=== PATIENT | male | born 1945 | race Caucasian/White ===

== ENCOUNTER 2020-02-05 10:38 | Inpatient (IN) | payer MEDICARE, MEDICAID ==
[2020-02-05] MEDS ORDERED: NS 1,000 ML IV ONE (11:00)
[2020-02-05 11:13] LABS: BASO % 0.1 % (0.0-1.0); HEMATOCRIT 52.3 % (42.0-52.0); HEMOGLOBIN 16.8 g/dl (13.5-17.5); LYMPH # 0.9 10^3/uL (1.5-5.0); LYMPH % 3.8 % (24.0-44.0); MEAN CORPUSCULAR HEMOGLOBIN 31.2 pg (27.0-33.0); MEAN CORPUSCULAR HGB CONC 32.1 g/dl (32.0-36.5); MONO # 1.4 10^3/uL (0.0-0.8); MONO % 5.8 % (0.0-5.0); NEUTROPHILS # 20.7 10^3/uL (1.5-8.5); NEUTROPHILS % 89.5 % (36.0-66.0); PLATELET COUNT, AUTOMATED 183 10^3/uL (150-450); RED BLOOD COUNT 5.39 10^6/uL (4.30-6.10); WHITE BLOOD COUNT 23.2 10^3/uL (4.0-10.0)
[2020-02-05] MEDS ORDERED: ACETAMINOPHEN 650 MG SUPP PR ONE (11:30)
[2020-02-05] MEDS ORDERED: cefTRIAXone SOD 2 GM in D5W MINI-BAG PLUS 50 ML IV ONE (11:30)
[2020-02-05] MEDS ORDERED: NS 2,050 ML in IV 1 EA IV ONE (11:30)
[2020-02-05 11:43] LABS: OSMOLALITY SERUM 299 MOSM/KG (280-301)
[2020-02-05 11:46] LABS: RSV AMPLIFICATION NEGATIVE (NEGATIVE)
[2020-02-05 11:48] LABS: ACETAMINOPHEN LEVEL < 2.0 UG/ML (10.0-30.0); ALBUMIN 3.2 GM/DL (3.2-5.2); ALT/SGPT 19 U/L (12-78); BILIRUBIN,DIRECT 0.2 MG/DL (0.0-0.2); BILIRUBIN,TOTAL 1.3 MG/DL (0.2-1.0); BLOOD UREA NITROGEN 23 MG/DL (7-18); CALCIUM LEVEL 8.5 MG/DL (8.8-10.2); CARBON DIOXIDE LEVEL 26 MEQ/L (21-32); CHLORIDE LEVEL 109 MEQ/L (98-107); CK-MB VALUE MASS 1.1 NG/ML (<3.6); CPK CREATINE PHOSPHOKINASE 121 U/L (39-308); ETHYL ALCOHOL (ETHANOL) 0.005 % (0.000-0.010); GLUCOSE, FASTING 145 MG/DL (70-100); MB/CK RELATIVE INDEX 0.91 (< OR =4); POTASSIUM SERUM 4.4 MEQ/L (3.5-5.1); SALICYLATE LEVEL < 1.7 MG/DL (5.0-30.0); SODIUM LEVEL 144 MEQ/L (136-145); THYROID STIMULATING HORMONE 0.709 uIU/ML (0.358-3.740); TOTAL PROTEIN 6.8 GM/DL (6.4-8.2); TROPONIN I < 0.02 NG/ML (< 0.10)
[2020-02-05 11:55] LABS: AMPHETAMINES LEVEL URINE NEGATIVE (NEGATIVE); BARBITURATES URINE NEGATIVE (NEGATIVE); BENZODIAZEPINES URINE NEGATIVE (NEGATIVE); CANNABINOIDS URINE NEGATIVE (NEGATIVE); COCAINE METABOLITE URINE NEGATIVE (NEGATIVE); METHADONE URINE NEGATIVE (NEGATIVE); OPIATES URINE NEGATIVE (NEGATIVE); PHENCYCLIDINE URINE NEGATIVE (NEGATIVE)
[2020-02-05 11:56] LABS: VENOUS BASE EXCESS -1.1 (-2.0-2.0); VENOUS HCO3 22.4 MEQ/L (23.0-27.0); VENOUS O2 SATURATION 96.1 % (60.0-80.0); VENOUS PARTIAL PRESSURE CO2 34.9 mmHg (38.0-50.0); VENOUS PARTIAL PRESSURE O2 76.1 mmHg (30.0-50.0); VENOUS PH 7.426 UNITS (7.330-7.430); VENOUS STANDARD HCO3 23.5 MEQ/L; VENOUS TOTAL CO2 23.5 MEQ/L (24.0-28.0)
--- NOTE | 2020-02-05 12:30 | REP ---
INDICATION: weakness. COMPARISON: No comparison study. TECHNIQUE: Portable upright AP chest radiograph. FINDINGS: Patient is turned somewhat to the left. Monitoring electrodes are seen. There is linear fibrosis versus platelike atelectasis in the left base. Heart is mildly prominent. No other infiltrate is seen. Pleural angles are sharp.. IMPRESSION: Linear platelike atelectasis versus scarring left base. Mildly prominent heart. Otherwise no acute disease.. <Electronically signed by Rolando Soto > 02/05/20 [id number]
[2020-02-05] MEDS ORDERED: ISOVUE-370 76% 100ML VIAL As Ordered ONE ×2 (13:03→13:11)
--- NOTE | 2020-02-05 13:48 | REP ---
INDICATION: weakness/leukocytosis/fever. COMPARISON: None. TECHNIQUE: Chest CT with IV contrast FINDINGS: There is dependent atelectasis versus subsegmental infiltrates in the lung bases bilaterally. There small bilateral pleural effusions. There are heavy interstitial markings. This could represent congestion or interstitial infiltrates. No lung masses or nodules are identified. There is no mediastinal, hilar or axillary lymph node enlargement. The thoracic aorta is unremarkable. Cardiac size is enlarged. There is no pericardial effusion. The visualized upper abdominal structures are unremarkable. IMPRESSION: Heavy interstitial markings, vascular congestion versus interstitial infiltrates. Bibasilar infiltrates versus dependent atelectasis. Small bilateral pleural effusions. Cardiomegaly. <Electronically signed by Joseph Nguyen > 02/05/20 [id number]
--- NOTE | 2020-02-05 13:48 | REP ---
INDICATION: weakness. COMPARISON: None. TECHNIQUE: Helical scanning is acquired. 5 mm axial images were reformatted. Coronal MPR images were generated. FINDINGS: Bone window settings demonstrate an intact bony calvarium. There is no evidence of skull fracture or incidental bony calvarial lesion. The visualized paranasal sinuses appear clear. No intraorbital abnormality is seen. On soft tissue window setting images; the lateral, third, and fourth ventricles are normal in size and position. Elkins-white differentiation pattern is normal above and below the tentorium. There are is no evidence of intracranial hemorrhage. No mass, edema, infarction, or midline shift is seen. No extra-axial fluid collection is appreciated. There is mild generalized volume loss. Small-vessel changes are seen in the periventricular white matter of the frontal lobes bilaterally. IMPRESSION: Small vessel changes and mild generalized volume loss. No acute intracranial abnormality.. <Electronically signed by Rolando Soto > 02/05/20 [id number]
--- NOTE | 2020-02-05 13:59 | REP ---
INDICATION: weakness/leukocytosis/fever. COMPARISON: None. TECHNIQUE: Abdomen and pelvis CT with IV contrast, without bowel contrast. FINDINGS: Please refer to the chest CT for findings in the lower lung dawkins. The hepatic parenchyma is homogeneous. There is no cholelithiasis. The gallbladder is moderately distended. There is induration of the para cholecystic fat, along the inferior margin of the gallbladder, interposed between the gallbladder and colonic hepatic flexure. No colonic diverticula are identified in this area. There is no pneumoperitoneum. There is no ascites.. This is nonspecific but could represent acalculous cholecystitis in the appropriate clinical setting. The pancreas and spleen are unremarkable. The adrenals and kidneys are unremarkable except for tiny renal cortical cyst on the left. There is a Bosniak type 1 left renal lower pole 3.6 cm cyst. The abdominal aorta is unremarkable. There is no periaortic adenopathy or mass. 9 there is no bowel distention or obstruction. The mesentery is otherwise unremarkable. Pelvis: The appendix is unremarkable. The bladder is unremarkable. The pelvic bowel loops are unremarkable. There is no ascites or adenopathy. There is a total right hip arthroplasty resulting in beam hardening and obscuration of the inferior pelvis. There is grade 1 compression deformity of the L1 vertebral body superior endplate, chronic versus acute. There is degenerative disc disease at L5-S1. IMPRESSION: Induration of the mesenteric fat inferior to the gallbladder interposed between the gallbladder and hepatic flexure of the colon. There is no cholelithiasis. There is mild gallbladder wall thickening. These findings are nonspecific but could represent acalculous cholecystitis in the appropriate clinical setting. No a diverticular wall thickening of the colonic hepatic flexure are identified. There is no cholelithiasis or gallbladder wall thickening. Consider gallbladder ultrasound for further evaluation. The appendix is unremarkable. Bowel loops and mesentery are otherwise unremarkable. There is no ascites or adenopathy. Age indeterminate grade 1 compression deformity of the L1 superior endplate. Right hip arthroplasty. <Electronically signed by Joseph Nguyen > 02/05/20 [id number]
[2020-02-05] MEDS ORDERED: TRIH2TAB3 PO (15:15)
[2020-02-05] MEDS ORDERED: MIRT-62 PO (15:15)
[2020-02-05] MEDS ORDERED: MELA1TAB9 PO (15:15)
[2020-02-05] MEDS ORDERED: BUPR300T92 PO ×2 (15:15)
[2020-02-05] MEDS ORDERED: ELIQ5TAB PO (15:15)
[2020-02-05] MEDS ORDERED: ACET650T61 PO (15:16)
[2020-02-05 17:58] VITALS: BP 143/71
--- NOTE | 2020-02-05 18:26 | HPEPDOC ---
General Date of Admission Feb 05, 2020 at 15:45 Date of Service: Feb 05, 2020 Chief Complaint The patient is a 75-year-old male admitted with a reason for visit of Pneumonia. Source: Family History of Present Illness Mr. Montgomery is a 75 year old male with Multisystem Atrophy for 10 years who is here for lethargy and AMS. History was obtained from sister (Sven Cook [phone] who is HCP and POA, not to be confused with [id number] Margie Bañuelos was originally at [facility] in [place], [place] until two weeks ago when family removed him from [facility]. Due to the COVID pandemic, family has not been able to see him, so they took him out of the nursing facility to live with them. At baseline, he is wheelchair bound. He is cognitively there and is able to eat regular food and drink through the straw. He cannot use utensils well and needs help to eat. About a week ago, he stopped having bowel movements, and family has been giving him MiraLax daily. He has been passing gas. Yesterday, he became very lethargic and he was more difficult to understand. EMS was contacted. CT head was negative. CT chest was suggestive of pneumonia and demonstrated possible UTI. Sister reports frequent UTI in patient. When I evaluated patient, he was shivering and confused. He could follow commands, but did not appropriately answer questions. He received R ocephin and 2L of fluid in the ED. Home Medications Scheduled Acetaminophen (Tylenol Arthritis) 650 Mg Tablet.er, 650 MG PO BID, (Reported) Apixaban (Eliquis) 5 Mg Tablet, 5 MG PO BID, (Reported) Bupropion HCl (Bupropion Xl) 300 Mg Tab.er.24h, 300 MG PO DAILY, (Reported) Melatonin (Melatonin) 5 Mg Tablet, 10 MG PO QHS, (Reported) Mirtazapine (Remeron) 15 Mg Tablet, 15 MG PO QHS, (Reported) Trihexyphenidyl HCl (Trihexyphenidyl HCl) 2 Mg Tablet, 2 MG PO QHS, (Reported) Allergies Coded Allergies: No Known Allergies (Verified Allergy, Unknown, 02/05/20) Past Medical History Medical History 1. Multisystem Atrophy 2. Recent right leg DVT in February 2019 Surgical History 1. Appendectomy 2. Hip replacement (unknown side) 3. Colonoscopy with complications (unknown complications) Family History Father: DM Mother: unknown Social History * Smoker: non-smoker Alcohol: Denies Drugs: denies A-FIB/CHADSVASC A-FIB History Current/History of A-Fib/PAF?: No Review of Systems Other systems Due to AMS and confusion, he was able to answer ROS questions Physical Examination General Exam: Positive: Moderate Distress Eye Exam: Positive: EOMI; Negative: Sclera icteric ENT Exam: Positive: Atraumatic Neck Exam: Negative: thyromegaly Chest Exam: Positive: Diminished Heart Exam: Positive: Rate Normal, Regular Rhythm Abdomen Exam: Positive: Normal bowel sounds; Negative: Soft (Hard), Tenderness Extremity Exam: Positive: Edema (Mild bilateral pitting edema) Neuro Exam: Negative: Normal Speech Psych Exam: Positive: Anxiety; Negative: Mental status NL Vital Signs Vital Signs Date Time Temp Pulse Resp B/P (MAP) Pulse Ox O2 Delivery O2 Flow Rate FiO2 02/05/20 16:26 98.8 87 18 92 Room Air 02/05/20 16:15 147/76 (99) Laboratory Data Labs 24H Laboratory Tests 2 02/05/20 10:58: Urine Color DK YELLOW, Urine Appearance HAZY, Urine pH 5.0, Urine Specific G ravity 1.024, Urine Protein 1+H, Urine Glucose (UA) NEGATIVE, Urine Ketones NEGATIVE, Urine Blood 1+H, Urine Nitrite NEGATIVE, Urine Bilirubin NEGATIVE, Urine Urobilinogen 4.0H, Urine Leukocyte Esterase 1+H, Urine WBC (Auto) 29H, Urine RBC (Auto) 15H, Urine Hyaline Casts (Auto) 0, Urine Bacteria (Auto) 1+H, Urine Squamous Epithelial Cells 0, Urine Mucus (Auto) SMALL, Urine Sperm (Auto) , Urine Opiates Screen NEGATIVE, Urine Methadone Screen NEGATIVE, Urine Barbiturates Screen NEGATIVE, Urine Phencyclidine Screen NEGATIVE, Urine Amphetamines Screen NEGATIVE, Urine Benzodiazepines Screen NEGATIVE, Urine Cocaine Metabolite Screen NEGATIVE, Urine Cannabinoids Screen NEGATIVE 02/05/20 11:00: Immature Granulocyte % (Auto) 0.8, Neutrophils (%) (Auto) 89.5H, Lymphocytes (%) (Auto) 3.8L, Monocytes (%) (Auto) 5.8H, Eosinophils (%) (Auto) 0.0, Basophils (%) (Auto) 0.1, Neutrophils # (Auto) 20.7H, Lymphocytes # (Auto) 0.9L, Monocytes # (Auto) 1.4H, Eosinophils # (Auto) 0.0, Basophils # (Auto) 0.0, Nucleated Red Blood Cells % (auto) 0.0, Anion Gap 9, Glomerular Filtration Rate 57.0, Osmolality 299, Lactic Acid Level 2.7*H, Calcium Level 8.5L, Total Bilirubin 1.3H, Direct Bilirubin 0.2, Aspartate Amino Transf (AST/SGOT) 22, Alanine Aminotransferase (ALT/SGPT) 19, Alkaline Phosphatase 85, Ammonia < 10, Total Creatine Kinase 121, Creatine Kinase MB 1.1, Creatine Kinase MB Relative Index 0.91, Troponin I < 0.02, Total Protein 6.8, Albumin 3.2, Albumin/Globulin Ratio 0.9, Thyroid Stimulating Hormone (TSH) 0.709, Salicylates Level < 1.7L, Acetaminophen Level < 2.0L, Ethyl Alcohol Level 0.005, Coronavirus (COVID- 19)(PCR) NEGATIVE, Influenza Type A (RT-PCR) NEGATIVE, Influenza Type B (RT-PCR) NEGATIVE, Respiratory Syncytial Virus (PCR) NEGATIVE 02/05/20 11:21: Blood Gas Bicarbonate Standard 23.5, Venous Blood pH 7.426, Venous Blood Partial Pressure CO2 34.9L, Venous Blood Partial Pressure O2 76.1H, Venous Blood Total Carbon Dioxide 23.5L, Venous Blood HCO3 22.4L, Venous Blood Oxygen Saturation 96.1H, Venous Blood Base Excess -1.1 02/05/20 16:16: Lactic Acid Followup at 4 Hours 3.3*H CBC/BMP Laboratory Tests 02/05/20 11:00 Microbiology Microbiology 02/05/20 Blood Culture, Received Pending 02/05/20 Blood Culture, Received Pending 02/05/20 Urine Culture, Received Pending Assessment/Plan Mr. Montgomery is a 75 year old male with Multisystem Atrophy for 10 years who is here for lethargy and AMS and found to have metabolic encephalopathy secondary to PNA and UTI. He will be treated for CAP. Same coverage with Rocephin for UTI. Pending urine culture results. Otherwise, continue monitoring for fever resolution and leukocytosis Plan / VTE VTE Prophylaxis Ordered?: Yes Plan Plan 1. Metabolic encephalopathy secondary to infection -Rocephin and azithromycin for CAP -Rocephin for UTI -Supportive care -Goal to have resolution of fever for more than 24 to 48 hours and resolution of leukocytosis -Follow up on procalcitonin and inflammatory markers 2. CAP -Imaging suggestive of PNA -Leukocytosis and fever -Rocephin and azithromycin -Ordered Sputum culture, Urine legionella antigen, urine strep pneumo antigen 3. UTI -UA suggestive for UTI -Pending culture results -Rocephin 4. Multisystem Atrophy -Follow up with neurology on Feb 25 -Continue Trihexyphen and Mirtazapine 5. History of DVT in Feb 2019 -Continue Eliquis 6. DVT ppx -On Eliquis Disposition: Family hopes to bring patient home at the end of the hospitalization FRED RBAVO DO Feb 05, 2020 17:49
[2020-02-05] MEDS: AZITHROMYCIN INJ 500 MG, VIAL MATE ADAPTER 1 EACH in D5W 250 ML IV SCH (18:30)
[2020-02-05] MEDS: TRIHEXYPHENIDYL 2 MG TAB PO SCH (21:03)
[2020-02-05] MEDS: APIXABAN 5 MG TAB (ELIQUIS) PO SCH (21:03)
[2020-02-05] MEDS: MIRTAZAPINE 15 MG TAB PO SCH (21:03)
[2020-02-05 22:00] VITALS: BP 140/72
[2020-02-05] MEDS ORDERED: NYSTATIN 100,000 UNITS/GM TOPICAL PWD 15 GM TOP PRN (22:45)
[2020-02-06 06:00] VITALS: BP 140/74
[2020-02-06 06:07] LABS: HEMATOCRIT 48.5 % (42.0-52.0); HEMOGLOBIN 15.3 g/dl (13.5-17.5); MEAN CORPUSCULAR HEMOGLOBIN 30.8 pg (27.0-33.0); MEAN CORPUSCULAR HGB CONC 31.5 g/dl (32.0-36.5); MEAN CORPUSCULAR VOLUME 97.6 fl (80.0-96.0); PLATELET COUNT, AUTOMATED 147 10^3/uL (150-450); RED BLOOD COUNT 4.97 10^6/uL (4.30-6.10); WHITE BLOOD COUNT 21.1 10^3/uL (4.0-10.0)
[2020-02-06 06:23] LABS: BLOOD UREA NITROGEN 22 MG/DL (7-18); CALCIUM LEVEL 9.1 MG/DL (8.8-10.2); CARBON DIOXIDE LEVEL 25 MEQ/L (21-32); CHLORIDE LEVEL 109 MEQ/L (98-107); CREATININE FOR GFR 1.11 MG/DL (0.70-1.30); GLOMERULAR FILTRATION RATE > 60.0 (>42); GLUCOSE, FASTING 132 MG/DL (70-100); POTASSIUM SERUM 3.5 MEQ/L (3.5-5.1); SODIUM LEVEL 139 MEQ/L (136-145)
--- NOTE | 2020-02-06 07:01 | ECGEPIP ---
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
[2020-02-06 07:49] LABS: ALBUMIN 2.8 GM/DL (3.2-5.2); ALT/SGPT 19 U/L (12-78); BILIRUBIN,DIRECT 0.4 MG/DL (0.0-0.2); BILIRUBIN,TOTAL 1.1 MG/DL (0.2-1.0); TOTAL PROTEIN 6.7 GM/DL (6.4-8.2)
[2020-02-06] MEDS: APIXABAN 5 MG TAB (ELIQUIS) PO SCH ×2 (10:03→21:09)
[2020-02-06] MEDS: BACLOFEN 10 MG TAB PO SCH ×3 (10:03→21:09)
[2020-02-06] MEDS: buPROPion **XL** TABLET 150MG (WELLBUTRIN XL) PO SCH (10:05)
[2020-02-06] MEDS: GABAPENTIN 100 MG CAP PO SCH ×2 (10:05→21:09)
[2020-02-06] MEDS: cefTRIAXone SOD 1 GM in D5W MINI-BAG PLUS 50 ML IV SCH (12:10)
[2020-02-06 14:00] VITALS: BP 134/74
[2020-02-06] MEDS: AZITHROMYCIN INJ 500 MG, VIAL MATE ADAPTER 1 EACH in D5W 250 ML IV SCH (17:00)
[2020-02-06] MEDS: ACETAMINOPHEN TAB 650MG DOSE (2X325MG) PO PRN (19:30)
--- NOTE | 2020-02-06 21:00 | IPNPDOC ---
Subjective Date Seen The patient was seen on 02/06/20. Subjective Chief Complaint/HPI Mr. Montgomery is a 75 year old male with Multisystem Atrophy for 10 years who is here for lethargy and AMS and found to have sepsis secondary to pneumonia and UTI. This morning, he was more conversive. He tells me he has dysuria. Denies chest pain or dyspnea. Reports thirst Objective Physical Examination General Exam: Positive: Mild Distress Eye Exam: Positive: EOMI; Negative: Sclera icteric ENT Exam: Positive: Atraumatic Neck Exam: Negative: thyromegaly Chest Exam: Positive: Diminished Heart Exam: Positive: Rate Normal, Regular Rhythm Abdomen Exam: Positive: Normal bowel sounds; Negative: Soft (Hard), Tenderness Extremity Exam: Positive: Edema (Mild bilateral pitting edema) Neuro Exam: Negative: Normal Speech Psych Exam: Positive: Anxiety; Negative: Mental status NL Assessment /Plan Assessment Mr. Montgomery is a 75 year old male with Multisystem Atrophy for 10 years who is here for lethargy and AMS and found to have sepsis secondary to PNA and UTI. He will be treated for CAP. Same coverage with Rocephin for UTI. Pending urine culture results. Otherwise, continue monitoring for fever resolution and leukocytosis Plan/VTE VTE Prophylaxis Ordered?: Yes Plan 1. Metabolic encephalopathy secondary to Sepsis -Rocephin and azithromycin for CAP -Rocephin for UTI -Supportive care -Goal to have resolution of fever for more than 24 to 48 hours and resolution of leukocytosis -Follow up on procalcitonin and inflammatory markers 2. Sepsis in the setting of pneumonia and UTI -Leukocytosis of 23.2, Fever of 101.7, HR >90 and RR >20 -lactic acid of 3.3 -Blood cultures positive for gram negative organism -Received 30mL/kg of fluids on admission, continue with antibiotics 3. CAP -Imaging suggestive of PNA -Leukocytosis and fever -Rocephin and azithromycin -Ordered Sputum culture, Urine legionella antigen, urine strep pneumo antigen 4. UTI -UA suggestive for UTI -Pending culture results -Rocephin 5. Multisystem Atrophy -Follow up with neurology on Feb 25 -Continue Trihexyphen and Mirtazapine 6. History of DVT in Feb 2019 -Continue Eliquis 7. DVT ppx -On Eliquis Disposition: Family hopes to bring patient home at the end of the hospitalization VS, I&O, 24H, Arie Vital Signs/I&O Vital Signs Date Time Temp Pulse Resp B/P (MAP) Pulse Ox O2 Delivery O2 Flow Rate FiO2 02/06/20 19:31 100.2 02/06/20 14:00 77 16 134/74 (94) 93 Room Air I&O- Last 24 Hours up to 6 AM 02/06/20 06:00 Intake Total 2680 ml Output Total 0 ml Balance 2680 ml Laboratory Data 24H LABS Laboratory Tests 2 02/06/20 05:21: Nucleated Red Blood Cells % (auto) 0.0, Anion Gap 5L, Glomerular Filtration Rate > 60.0, Calcium Level 9.1, Total Bilirubin 1.1H, Direct Bilirubin 0.4H, Aspartate Amino Transf (AST/SGOT) 13, Alanine Aminotransferase (ALT/SGPT) 19, Alkaline Phosphatase 78, Total Protein 6.7, Albumin 2.8L, Albumin/Globulin Ratio 0.7 02/06/20 07:36: Lactic Acid Level 1.6 CBC/BMP Laboratory Tests 02/06/20 05:21 Microbiology Microbiology 02/05/20 Blood Culture - Preliminary, Resulted 02/05/20 Blood Culture - Preliminary, Resulted 02/05/20 Urine Culture, Received Pending FRED BRAVO DO Feb 06, 2020 21:00
[2020-02-06] MEDS: TRIHEXYPHENIDYL 2 MG TAB PO SCH (21:09)
[2020-02-06] MEDS: MIRTAZAPINE 15 MG TAB PO SCH (21:09)
[2020-02-06 22:00] VITALS: BP 139/75
[2020-02-07 06:00] VITALS: BP 142/64
[2020-02-07 06:39] LABS: HEMATOCRIT 47.4 % (42.0-52.0); HEMOGLOBIN 15.4 g/dl (13.5-17.5); MEAN CORPUSCULAR HEMOGLOBIN 32.4 pg (27.0-33.0); MEAN CORPUSCULAR HGB CONC 32.5 g/dl (32.0-36.5); MEAN CORPUSCULAR VOLUME 99.6 fl (80.0-96.0); PLATELET COUNT, AUTOMATED 122 10^3/uL (150-450); RED BLOOD COUNT 4.76 10^6/uL (4.30-6.10); WHITE BLOOD COUNT 15.8 10^3/uL (4.0-10.0)
[2020-02-07 07:04] LABS: BLOOD UREA NITROGEN 24 MG/DL (7-18); CALCIUM LEVEL 7.9 MG/DL (8.8-10.2); CARBON DIOXIDE LEVEL 25 MEQ/L (21-32); CHLORIDE LEVEL 108 MEQ/L (98-107); CREATININE FOR GFR 1.07 MG/DL (0.70-1.30); GLOMERULAR FILTRATION RATE > 60.0 (>42); GLUCOSE, FASTING 98 MG/DL (70-100); POTASSIUM SERUM 3.7 MEQ/L (3.5-5.1); SODIUM LEVEL 141 MEQ/L (136-145)
[2020-02-07] MEDS ORDERED: PREVNAR 13 VACCINE SYRINGE IM ONE (09:00)
[2020-02-07] MEDS: APIXABAN 5 MG TAB (ELIQUIS) PO SCH ×2 (11:34→20:52)
[2020-02-07] MEDS: GABAPENTIN 100 MG CAP PO SCH ×2 (11:34→20:53)
[2020-02-07] MEDS: BACLOFEN 10 MG TAB PO SCH ×3 (11:34→20:53)
[2020-02-07] MEDS: cefTRIAXone SOD 1 GM in D5W MINI-BAG PLUS 50 ML IV SCH (11:35)
[2020-02-07] MEDS: buPROPion **XL** TABLET 150MG (WELLBUTRIN XL) PO SCH (11:46)
[2020-02-07 14:00] VITALS: BP 122/70
[2020-02-07] MEDS: AZITHROMYCIN INJ 500 MG, VIAL MATE ADAPTER 1 EACH in D5W 250 ML IV SCH (17:39)
[2020-02-07] MEDS: ACETAMINOPHEN TAB 650MG DOSE (2X325MG) PO PRN (18:51)
--- NOTE | 2020-02-07 18:56 | IPNPDOC ---
Subjective Date Seen The patient was seen on 02/07/20. Subjective Chief Complaint/HPI Mr. Montgomery is a 75 year old male with Multisystem Atrophy for 10 years who is here for lethargy and AMS and found to have sepsis secondary to pneumonia and UTI. Yesterday afternoon, had had a fever and this morning, he had a low grade temp. Otherwise, his voice is stronger and clearer. Denies chest pain or abdominal pain. Objective Physical Examination General Exam: Positive: Mild Distress Eye Exam: Positive: EOMI; Negative: Sclera icteric ENT Exam: Positive: Atraumatic Neck Exam: Negative: thyromegaly Chest Exam: Positive: Diminished Heart Exam: Positive: Rate Normal, Regular Rhythm Abdomen Exam: Positive: Normal bowel sounds; Negative: Soft (Hard), Tenderness Extremity Exam: Positive: Edema (Mild bilateral pitting edema) Neuro Exam: Negative: Normal Speech Psych Exam: Positive: Anxiety; Negative: Mental status NL Assessment /Plan Assessment Mr. Montgomery is a 75 year old male with Multisystem Atrophy for 10 years who is here for lethargy and AMS and found to have sepsis secondary to PNA and UTI. He will be treated for CAP. Same coverage with Rocephin for UTI. Pending urine culture grew Proteus mirabilis (>100,000). Otherwise, continue monitoring for fever resolution and leukocytosis. Pending blood cultures which grew gram negative organisms. Most likely the same organism Plan/VTE VTE Prophylaxis Ordered?: Yes Plan 1. Metabolic encephalopathy secondary to Sepsis -Rocephin and azithromycin for CAP -Rocephin for UTI -Supportive care -Goal to have resolution of fever for more than 24 to 48 hours and resolution of leukocytosis -Follow up on procalcitonin and inflammatory markers 2. Gram negative sepsis in the setting of pneumonia and UTI -Leukocytosis of 23.2, Fever of 101.7, HR >90 and RR >20 -lactic acid of 3.3 -Blood cultures positive for gram negative organism. Pending result -Received 30mL/kg of fluids on admission, continue with antibiotics 3. CAP -Imaging suggestive of PNA -Leukocytosis and fever -Rocephin and azithromycin -Ordered Sputum culture, Urine legionella antigen, urine strep pneumo antigen 4. Proteus mirabilis UTI -Reported dysuria -Urine culture grew Proteus mirabilis -Rocephin 5. Multisystem Atrophy -Follow up with neurology on Feb 25 -Continue Trihexyphen and Mirtazapine 6. History of DVT in Feb 2019 -Continue Eliquis 7. DVT ppx -On Eliquis Disposition: Family hopes to bring patient home at the end of the hospitalization VS, I&O, 24H, Fishbone Vital Signs/I&O Vital Signs Date Time Temp Pulse Resp B/P (MAP) Pulse Ox O2 Delivery O2 Flow Rate FiO2 02/07/20 14:00 100.2 75 18 122/70 (87) 93 Room Air I&O- Last 24 Hours up to 6 AM 02/07/20 06:00 Intake Total 600 ml Output Total 0 ml Balance 600 ml Laboratory Data 24H LABS Laboratory Tests 2 02/07/20 06:04: Nucleated Red Blood Cells % (auto) 0.0, Anion Gap 8, Glomerular Filtration Rate > 60.0, Calcium Level 7.9L 02/07/20 11:39: Bedside Glucose (Misc Panel) 109 02/07/20 17:14: Bedside Glucose (Misc Panel) 107 CBC/BMP Laboratory Tests 02/07/20 06:04 Microbiology Microbiology 02/05/20 Blood Culture - Preliminary, Resulted 02/05/20 Blood Culture - Preliminary, Resulted 02/05/20 Urine Culture - Final, Complete Proteus Mirabilis FRED BRAVO DO Feb 07, 2020 18:56
[2020-02-07] MEDS: TRIHEXYPHENIDYL 2 MG TAB PO SCH (20:53)
[2020-02-07] MEDS: MIRTAZAPINE 15 MG TAB PO SCH (20:53)
[2020-02-07 22:00] VITALS: BP 123/72
[2020-02-08 06:00] VITALS: BP 126/72
[2020-02-08 06:16] LABS: HEMATOCRIT 44.6 % (42.0-52.0); HEMOGLOBIN 14.2 g/dl (13.5-17.5); MEAN CORPUSCULAR HGB CONC 31.8 g/dl (32.0-36.5); MEAN CORPUSCULAR VOLUME 97.4 fl (80.0-96.0); PLATELET COUNT, AUTOMATED 143 10^3/uL (150-450); RED BLOOD COUNT 4.58 10^6/uL (4.30-6.10); WHITE BLOOD COUNT 12.5 10^3/uL (4.0-10.0)
[2020-02-08 06:39] LABS: BLOOD UREA NITROGEN 22 MG/DL (7-18); CALCIUM LEVEL 8.1 MG/DL (8.8-10.2); CARBON DIOXIDE LEVEL 24 MEQ/L (21-32); CHLORIDE LEVEL 107 MEQ/L (98-107); CREATININE FOR GFR 0.91 MG/DL (0.70-1.30); GLOMERULAR FILTRATION RATE > 60.0 (>42); GLUCOSE, FASTING 113 MG/DL (70-100); POTASSIUM SERUM 3.7 MEQ/L (3.5-5.1); SODIUM LEVEL 141 MEQ/L (136-145)
[2020-02-08] MEDS: cefTRIAXone SOD 1 GM in D5W MINI-BAG PLUS 50 ML IV SCH (11:10)
[2020-02-08] MEDS: APIXABAN 5 MG TAB (ELIQUIS) PO SCH ×2 (12:04→22:56)
[2020-02-08] MEDS: GABAPENTIN 100 MG CAP PO SCH ×2 (12:04→22:56)
[2020-02-08] MEDS: buPROPion **XL** TABLET 150MG (WELLBUTRIN XL) PO SCH (12:04)
[2020-02-08] MEDS: BACLOFEN 10 MG TAB PO SCH ×3 (12:04→22:56)
[2020-02-08 14:00] VITALS: BP 129/73
--- NOTE | 2020-02-08 14:19 | IPNPDOC ---
Subjective Date Seen The patient was seen on 02/08/20. Subjective Chief Complaint/HPI Mr. Montgomery is a 75 year old male with Multisystem Atrophy for 10 years who is here for lethargy and AMS and found to have sepsis secondary to pneumonia and UTI. He has cyclical low grade temps which may be a beta-lactam fever. Leukocytosis improving and there is an overall clinical improvement. Will switch from Ceftriaxone to Levofloxacin. Otherwise, he was seen in the afternoon eating lunch with assistance. Denies chest pain, dyspnea, abdominal pain, or dysuria. Objective Physical Examination General Exam: Positive: No Acute Distress Eye Exam: Positive: EOMI; Negative: Sclera icteric ENT Exam: Positive: Atraumatic Neck Exam: Negative: thyromegaly Chest Exam: Positive: Diminished Heart Exam: Positive: Rate Normal, Regular Rhythm Abdomen Exam: Positive: Normal bowel sounds; Negative: Tenderness Extremity Exam: Positive: Edema (Mild bilateral pitting edema) Neuro Exam: Positive: Normal Speech Psych Exam: Positive: Mental status NL, Mood NL Assessment /Plan Assessment Mr. Montgomery is a 75 year old male with Multisystem Atrophy for 10 years who is here for lethargy and AMS and found to have sepsis secondary to PNA and UTI. Both urine culture and blood culture grew Proteus mirabilis which is sensitive to both Rocephin and levofloxacin. His low grade temps may be a beta lactam fever. Will switch to levofloxacin for tomorrow. If his leukocytosis resolves, he may be able to go home tomorrow. Plan/VTE VTE Prophylaxis Ordered?: Yes Plan 1. Metabolic encephalopathy secondary to Sepsis -Rocephin and azithromycin for CAP -Rocephin for UTI -Supportive care -Goal to have resolution of leukocytosis 2. Gram negative sepsis (with Proteus) in the setting of pneumonia and UTI -Leukocytosis of 23.2, Fever of 101.7, HR >90 and RR >20 -lactic acid of 3.3 -Blood cultures positive for gram negative organism. Pending result -Received 30mL/kg of fluids on admission, continue with antibiotics 3. CAP -Imaging suggestive of PNA -Leukocytosis and fever -Completed azithromycin course -Switch Rocephin to levofloxacin 4. Proteus mirabilis UTI -Reported dysuria -Urine culture grew Proteus mirabilis -Levofloxacin for possible beta lactam fever with Rocephin 5. Multisystem Atrophy -Follow up with neurology on Feb 25 -Continue Trihexyphen and Mirtazapine 6. History of DVT in Feb 2019 -Continue Eliquis 7. DVT ppx -On Eliquis Disposition: Family hopes to bring patient home at the end of the hospit alization. Possibly tomorrow if leukocytes resolve VS, I&O, 24H, Fishbone Vital Signs/I&O Vital Signs Date Time Temp Pulse Resp B/P (MAP) Pulse Ox O2 Delivery O2 Flow Rate FiO2 02/08/20 06:00 97.5 74 18 126/72 (90) 95 Room Air I&O- Last 24 Hours up to 6 AM 02/08/20 06:00 Intake Total 675 ml Output Total 0 ml Balance 675 ml Laboratory Data 24H LABS Laboratory Tests 2 02/07/20 17:14: Bedside Glucose (Misc Panel) 107 02/08/20 05:47: Nucleated Red Blood Cells % (auto) 0.0, Anion Gap 10, Glomerular Filtration Rate > 60.0, Calcium Level 8.1L CBC/BMP Laboratory Tests 02/08/20 05:47 Microbiology Microbiology 02/08/20 Blood Culture, Received Pending 02/05/20 Blood Culture - Final, Complete Proteus Mirabilis 02/05/20 Blood Culture - Final, Complete Proteus Mirabilis 02/05/20 Urine Culture - Final, Complete Proteus Mirabilis FRED BRAVO DO Feb 08, 2020 14:19
[2020-02-08] MEDS: LevoFLOXacin 750 MG TABLET PO SCH (18:02)
[2020-02-08 22:00] VITALS: BP 155/97
[2020-02-08] MEDS: TRIHEXYPHENIDYL 2 MG TAB PO SCH (22:55)
[2020-02-08] MEDS: MIRTAZAPINE 15 MG TAB PO SCH (22:56)
[2020-02-09 06:00] VITALS: BP 133/67
[2020-02-09 06:29] LABS: HEMATOCRIT 42.1 % (42.0-52.0); HEMOGLOBIN 13.7 g/dl (13.5-17.5); MEAN CORPUSCULAR HEMOGLOBIN 32.1 pg (27.0-33.0); MEAN CORPUSCULAR HGB CONC 32.5 g/dl (32.0-36.5); MEAN CORPUSCULAR VOLUME 98.6 fl (80.0-96.0); PLATELET COUNT, AUTOMATED 149 10^3/uL (150-450); RED BLOOD COUNT 4.27 10^6/uL (4.30-6.10); WHITE BLOOD COUNT 8.4 10^3/uL (4.0-10.0)
[2020-02-09 06:50] LABS: BLOOD UREA NITROGEN 22 MG/DL (7-18); CALCIUM LEVEL 8.3 MG/DL (8.8-10.2); CARBON DIOXIDE LEVEL 27 MEQ/L (21-32); CHLORIDE LEVEL 108 MEQ/L (98-107); CREATININE FOR GFR 0.94 MG/DL (0.70-1.30); GLOMERULAR FILTRATION RATE > 60.0 (>42); GLUCOSE, FASTING 88 MG/DL (70-100); POTASSIUM SERUM 3.3 MEQ/L (3.5-5.1); SODIUM LEVEL 141 MEQ/L (136-145)
[2020-02-09] MEDS ORDERED: NS 1,000 ML IV SCH (08:30)
[2020-02-09] MEDS ORDERED: ISOVUE-370 76% 100ML VIAL As Ordered ONE (08:41)
[2020-02-09] MEDS ORDERED: POTASSIUM CHLORIDE 10% LIQ 20 MEQ/15 ML UDC PO ONE (09:00)
--- NOTE | 2020-02-09 09:24 | REPVR ---
PROCEDURE INFORMATION: Exam: CT Neck With Contrast Exam date and time: 02/09/2020 9:06 AM Age: 75 years old Clinical indication: Other: Right neck/clavical swelling; Patient HX: Bb marker placed above and below area of interest TECHNIQUE: Imaging protocol: Computed tomography images of the neck with intravenous contrast. Radiation optimization: All CT scans at this facility use at least one of these dose optimization techniques: automated exposure control; mA and/or kV adjustment per patient size (includes targeted exams where dose is matched to clinical indication); or iterative reconstruction. Contrast material: ISOVUE 370; Contrast volume: 75 ml; Contrast route: INTRAVENOUS (IV); COMPARISON: No relevant prior studies available. FINDINGS: Nasopharynx: Unremarkable. Oropharynx: Unremarkable. No significant tonsillar enlargement. Hypopharynx: Unremarkable. Larynx: Unremarkable. Normal epiglottis. Retropharyngeal space: Unremarkable. Submandibular/Parotid glands: Normal. Glands are normal in size. Thyroid: Normal. No enlarged or calcified nodules. Lymph nodes: Unremarkable. No lymphadenopathy. Trachea: Visualized trachea is unremarkable. Lungs: Unremarkable as visualized. Bones/joints: There is degenerative disc disease and spondylosis at multiple levels.. No acute fracture. Soft tissues: Unremarkable. No significant soft tissue swelling. IMPRESSION: No acute findings. Specifically, no overt soft tissue abnormality correlates with site of palpable abnormality Electronically signed by: Rachel Augustine On 02/09/2020 09:24:20 AM
[2020-02-09] MEDS: buPROPion **XL** TABLET 150MG (WELLBUTRIN XL) PO SCH (09:29)
[2020-02-09] MEDS: BACLOFEN 10 MG TAB PO SCH ×3 (09:29→20:00)
[2020-02-09] MEDS: GABAPENTIN 100 MG CAP PO SCH ×2 (09:29→20:01)
[2020-02-09] MEDS: APIXABAN 5 MG TAB (ELIQUIS) PO SCH ×2 (09:29→20:00)
[2020-02-09] MEDS ORDERED: LEVO750T13 PO (09:49)
[2020-02-09 14:00] VITALS: BP 144/77
--- NOTE | 2020-02-09 17:01 | IPNPDOC ---
Subjective Date Seen The patient was seen on 02/09/20. Subjective Chief Complaint/HPI Mr. Montgomery is a 75 year old male with Multisystem Atrophy for 10 years who is here for lethargy and AMS and found to have sepsis secondary to pneumonia and UTI. This morning, he was feeling better and was feeding himself. Denies chest pain, dyspnea, abdominal pain, or dysuria. Planned for discharge home today, but needed another day for to prepare to receive him at home. Objective Physical Examination General Exam: Positive: No Acute Distress Eye Exam: Positive: EOMI; Negative: Sclera icteric ENT Exam: Positive: Atraumatic Neck Exam: Negative: thyromegaly Chest Exam: Positive: Diminished Heart Exam: Positive: Rate Normal, Regular Rhythm Abdomen Exam: Positive: Normal bowel sounds; Negative: Tenderness Extremity Exam: Positive: Edema (Mild bilateral pitting edema) Neuro Exam: Positive: Normal Speech Psych Exam: Positive: Mental status NL, Mood NL Assessment /Plan Assessment Mr. Montgomery is a 75 year old male with Multisystem Atrophy for 10 years who is here for lethargy and AMS and found to have sepsis secondary to PNA and UTI. Both urine culture and blood culture grew Proteus mirabilis which is sensitive to both Rocephin and levofloxacin. His low grade temps may be a beta lactam fever. He was switched to Levofloxacin. Plan for home tomorrow Plan/VTE VTE Prophylaxis Ordered?: Yes Plan 1. Metabolic encephalopathy secondary to Sepsis -Rocephin and azithromycin for CAP -Rocephin for UTI -Supportive care -Goal to have resolution of leukocytosis 2. Gram negative sepsis (with Proteus) in the setting of pneumonia and UTI -Leukocytosis of 23.2, Fever of 101.7, HR >90 and RR >20 -lactic acid of 3.3 -Blood cultures positive for gram negative organism. Pending result -Received 30mL/kg of fluids on admission, continue with antibiotics 3. CAP -Imaging suggestive of PNA -Leukocytosis and fever -Completed azithromycin course -Switch Rocephin to levofloxacin 4. Proteus mirabilis UTI -Reported dysuria -Urine culture grew Proteus mirabilis -Levofloxacin for possible beta lactam fever with Rocephin 5. Multisystem Atrophy -Follow up with neurology on Feb 25 -Continue Trihexyphen and Mirtazapine 6. History of DVT in Feb 2019 -Continue Eliquis 7. DVT ppx -On Eliquis Disposition: Family hopes to bring patient home at the end of the hospitalization. Plan for home tomorrow VS, I&O, 24H, Fishbone Vital Signs/I&O Vital Signs Date Time Temp Pulse Resp B/P (MAP) Pulse Ox O2 Delivery O2 Flow Rate FiO2 02/09/20 14:00 99.1 58 18 144/77 (99) 95 Room Air I&O- Last 24 Hours up to 6 AM 02/09/20 05:59 Intake Total 1260 ml Output Total 0 ml Balance 1260 ml Laboratory Data 24H LABS Laboratory Tests 2 02/09/20 06:09: Nucleated Red Blood Cells % (auto) 0.0, Anion Gap 6L, Glomerular Filtration Rate > 60.0, Calcium Level 8.3L CBC/BMP Laboratory Tests 02/09/20 06:09 Microbiology Microbiology 02/08/20 Blood Culture - Preliminary, Resulted No growth after 24 hours . All specim... 02/05/20 Blood Culture - Final, Complete Proteus Mirabilis 02/05/20 Blood Culture - Final, Complete Proteus Mirabilis 02/05/20 Urine Culture - Final, Complete Proteus Mirabilis FRED BRAVO DO Feb 09, 2020 17:01
[2020-02-09] MEDS: LevoFLOXacin 750 MG TABLET PO SCH (17:09)
[2020-02-09] MEDS: MIRTAZAPINE 15 MG TAB PO SCH (20:00)
[2020-02-09] MEDS: TRIHEXYPHENIDYL 2 MG TAB PO SCH (20:31)
[2020-02-09 22:00] VITALS: BP_SYST 125; BP_SYST 145; BP_DIAS 71; BP_DIAS 76
[2020-02-10 06:00] VITALS: BP 136/76
[2020-02-10 06:36] LABS: HEMATOCRIT 43.4 % (42.0-52.0); HEMOGLOBIN 13.9 g/dl (13.5-17.5); MEAN CORPUSCULAR HEMOGLOBIN 31.4 pg (27.0-33.0); PLATELET COUNT, AUTOMATED 186 10^3/uL (150-450); RED BLOOD COUNT 4.43 10^6/uL (4.30-6.10); WHITE BLOOD COUNT 7.1 10^3/uL (4.0-10.0)
[2020-02-10 06:58] LABS: BLOOD UREA NITROGEN 18 MG/DL (7-18); CALCIUM LEVEL 8.7 MG/DL (8.8-10.2); CARBON DIOXIDE LEVEL 27 MEQ/L (21-32); CHLORIDE LEVEL 112 MEQ/L (98-107); CREATININE FOR GFR 0.84 MG/DL (0.70-1.30); GLOMERULAR FILTRATION RATE > 60.0 (>42); GLUCOSE, FASTING 99 MG/DL (70-100); POTASSIUM SERUM 3.8 MEQ/L (3.5-5.1); SODIUM LEVEL 143 MEQ/L (136-145)
[2020-02-10] MEDS: GABAPENTIN 100 MG CAP PO SCH (09:27)
[2020-02-10] MEDS: buPROPion **XL** TABLET 150MG (WELLBUTRIN XL) PO SCH (09:27)
[2020-02-10] MEDS: APIXABAN 5 MG TAB (ELIQUIS) PO SCH (09:27)
[2020-02-10] MEDS: BACLOFEN 10 MG TAB PO SCH ×2 (09:27→15:16)
[2020-02-10 14:00] VITALS: BP 139/74
== END 2020-02-10 16:55 | disposition home health service (06) | DRG 871 ==
LOC: EDBD 10:38 → M ED 10:38 → M ED INP 15:45 → M MSPAV 17:50
PROVIDERS: ADMIT Internal Medicine; ATTEND Internal Medicine
DX: A41.50 Gram-negative sepsis, unspecified (principal); J18.9 Pneumonia, unspecified organism; G93.41 Metabolic encephalopathy; N39.0 Urinary tract infection, site not specified; B96.4 Proteus (mirabilis) (morganii) as the cause of diseases classified elsewhere; M62.59 Muscle wasting and atrophy, not elsewhere classified, multiple sites; Z66 Do not resuscitate; Z86.718 Personal history of other venous thrombosis and embolism; Z79.01 Long term (current) use of anticoagulants; Z79.899 Other long term (current) drug therapy; Z96.649 Presence of unspecified artificial hip joint; Z90.49 Acquired absence of other specified parts of digestive tract; Z20.828 Contact with and (suspected) exposure to other viral communicable diseases

== ENCOUNTER 2020-02-13 01:00 | Emergency (ER) | payer MEDICARE, MEDICAID ==
[~2020-02-13] VITALS: Ht 172.7 cm; Wt 100.0 kg
[~2020-02-13 01:00] MED LIST: ACET650T61 PO; BUPR300T92 PO; ELIQ5TAB PO; LEVO750T13 PO; MELA1TAB9 PO; MIRT-62 PO; TRIH2TAB3 PO
[2020-02-13 01:26] LABS: BASO # 0.1 10^3/uL (0.0-0.2); BASO % 0.4 % (0.0-1.0); HEMATOCRIT 53.6 % (42.0-52.0); HEMOGLOBIN 17.6 g/dl (13.5-17.5); LYMPH # 0.8 10^3/uL (1.5-5.0); LYMPH % 5.8 % (24.0-44.0); MEAN CORPUSCULAR HEMOGLOBIN 31.6 pg (27.0-33.0); MEAN CORPUSCULAR HGB CONC 32.8 g/dl (32.0-36.5); MEAN CORPUSCULAR VOLUME 96.2 fl (80.0-96.0); MONO # 0.7 10^3/uL (0.0-0.8); MONO % 4.9 % (0.0-5.0); NEUTROPHILS # 11.9 10^3/uL (1.5-8.5); NEUTROPHILS % 88.3 % (36.0-66.0); PLATELET COUNT, AUTOMATED 326 10^3/uL (150-450); RED BLOOD COUNT 5.57 10^6/uL (4.30-6.10); VENOUS HCO3 23.6 MEQ/L (23.0-27.0); VENOUS PARTIAL PRESSURE CO2 39.1 mmHg (38.0-50.0); VENOUS PARTIAL PRESSURE O2 59.3 mmHg (30.0-50.0); VENOUS PH 7.398 UNITS (7.330-7.430); VENOUS STANDARD HCO3 23.5 MEQ/L; VENOUS TOTAL CO2 24.8 MEQ/L (24.0-28.0); WHITE BLOOD COUNT 13.4 10^3/uL (4.0-10.0)
[2020-02-13 01:36] LABS: INR 1.46; PROTHROMBIN TIME 18.1 SECONDS (12.5-14.3)
[2020-02-13] MEDS ORDERED: NS 1,000 ML IV ONE (01:45)
[2020-02-13] MEDS ORDERED: LEVO750T13 PO (01:50)
--- NOTE | 2020-02-13 02:04 | REPVR ---
PROCEDURE INFORMATION: Exam: XR Chest, 1 View Exam date and time: 02/13/2020 1:46 AM Age: 75 years old Clinical indication: Cough and shortness of breath; Additional info: Dyspnea/cough TECHNIQUE: Imaging protocol: XR of the chest Views: 1 view. COMPARISON: CT Chest with contrast 02/05/2020 1:14 PM FINDINGS: Lungs: There is decreased inflation of the lungs. Slight coarsening of interstitial markings which is similar. Slightly increased left infrahilar infiltrate or atelectasis. Pleural space: Slightly increased left pleural effusion. Heart/Mediastinum: The heart and mediastinum are unchanged. Bones/joints: Unremarkable. IMPRESSION: 1. Slightly increased left infrahilar infiltrate or atelectasis and slightly increased left pleural effusion since 02/05/2020. 2. Otherwise stable poor inspiratory chest. Electronically signed by: Ryder Boston On 02/13/2020 02:03:46 AM
[2020-02-13 02:12] LABS: ALBUMIN 2.7 GM/DL (3.2-5.2); ALT/SGPT 483 U/L (12-78); BILIRUBIN,DIRECT 5.5 MG/DL (0.0-0.2); BILIRUBIN,TOTAL 6.7 MG/DL (0.2-1.0); BLOOD UREA NITROGEN 24 MG/DL (7-18); CALCIUM LEVEL 8.9 MG/DL (8.8-10.2); CARBON DIOXIDE LEVEL 22 MEQ/L (21-32); CHLORIDE LEVEL 106 MEQ/L (98-107); CK-MB VALUE MASS 1.1 NG/ML (<3.6); CPK CREATINE PHOSPHOKINASE 72 U/L (39-308); CREATININE FOR GFR 1.49 MG/DL (0.70-1.30); GLOMERULAR FILTRATION RATE 48.7 (>42); GLUCOSE, FASTING 146 MG/DL (70-100); MB/CK RELATIVE INDEX 1.53 (< OR =4); NT-PRO BNP 1015 PG/ML (<450); POTASSIUM SERUM 4.2 MEQ/L (3.5-5.1); SODIUM LEVEL 140 MEQ/L (136-145); THYROXINE (T4) 10.6 UG/DL (4.5-12.0); TOTAL PROTEIN 7.2 GM/DL (6.4-8.2); TROPONIN I < 0.02 NG/ML (< 0.10)
[2020-02-13] MEDS ORDERED: CEFEPIME HCL 2 GM in D5W MINI-BAG PLUS 50 ML IV ONE (02:15)
[2020-02-13] MEDS ORDERED: NS 2,000 ML in IV 1 EA IV ONE (02:15)
[2020-02-13 02:55] LABS: RSV AMPLIFICATION NEGATIVE (NEGATIVE)
[2020-02-13 03:56] LABS: LIPASE 5566 U/L (73-393)
--- NOTE | 2020-02-13 03:58 | REPVR ---
PROCEDURE INFORMATION: Exam: US Abdomen, Limited; Right Upper Quadrant Exam date and time: 02/13/2020 3:40 AM Age: 75 years old Clinical indication: Abnormal findings; Abnormal lab test; Elevated liver enzymes; Additional info: Fever/elevated liver function tests TECHNIQUE: Imaging protocol: US abdomen. Real time ultrasound with image documentation. Limited exam focused on the right upper quadrant. COMPARISON: CT ABD/PEL W/IV CONTRAST ONLY 02/05/2020 1:14 PM FINDINGS: Liver: The liver demonstrates no focal defects with mildly echogenic parenchyma. Gallbladder: The gallbladder demonstrates sludge and small shadowing stones. There is wall thickening measuring to 7 mm with pericholecystic fluid or wall edema with surrounding echogenic fat. Common bile duct: The CBD measures 8 mm. Pancreas: The pancreas is obscured by gas shadowing. Right kidney: The right kidney measures 11.2 cm with no hydronephrosis. There is a small cyst measuring 11 x 6 x 7 mm. IMPRESSION: 1. Cholelithiasis with stones and sludge. There is gallbladder wall thickening with pericholecystic fluid or wall edema and surrounding echogenic edematous fat consistent with cholecystitis. 2. Slightly distended CBD measuring 8 mm. 3. Mild fatty infiltration of the liver. 4. Otherwise negative right upper quadrant sonogram. Electronically signed by: Ryder Boston On 02/13/2020 03:58:46 AM
[2020-02-13] MEDS ORDERED: metroNIDAZOLE 500 MG in IV 1 EA IV ONE (04:30)
[2020-02-13 05:45] VITALS: BP 154/89
--- NOTE | 2020-02-13 07:44 | ECGEPIP ---
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
== END 2020-02-13 05:55 | disposition short-term general hospital (02) ==
LOC: M ED 01:00
DX: K85.10 Biliary acute pancreatitis without necrosis or infection (principal); K80.60 Calculus of gallbladder and bile duct with cholecystitis, unspecified, without obstruction; K76.0 Fatty (change of) liver, not elsewhere classified; K83.8 Other specified diseases of biliary tract; R00.0 Tachycardia, unspecified; Z79.899 Other long term (current) drug therapy; Z79.01 Long term (current) use of anticoagulants; Z79.2 Long term (current) use of antibiotics
CPT/HCPCS: 71045; 76705; 80048; 80076; 81001; 82550; 82553; 82803; 83605; 83690; 83880; 84436; 84443; 84484; 85025; 85610; 87040; 87631; 93005; 93041; 96361; 96365; 96367; 99285; J0692

== ENCOUNTER 2020-02-28 14:02 | Inpatient (IN) | payer MEDICARE, MEDICAID ==
[~2020-02-28] VITALS: Ht 182.9 cm; Wt 103.5 kg
[2020-02-28] MEDS ORDERED: NS 1,000 ML IV SCH (14:24)
[2020-02-28 14:54] LABS: BASO % 0.2 % (0.0-1.0); EOS # 0.1 10^3/uL (0.0-0.5); EOS % 1.1 % (0.0-3.0); HEMATOCRIT 39.5 % (42.0-52.0); HEMOGLOBIN 12.7 g/dl (13.5-17.5); LYMPH # 1.3 10^3/uL (1.5-5.0); LYMPH % 13.4 % (24.0-44.0); MEAN CORPUSCULAR HGB CONC 32.2 g/dl (32.0-36.5); MEAN CORPUSCULAR VOLUME 99.5 fl (80.0-96.0); MONO # 0.7 10^3/uL (0.0-0.8); MONO % 7.1 % (0.0-5.0); NEUTROPHILS # 7.4 10^3/uL (1.5-8.5); PLATELET COUNT, AUTOMATED 262 10^3/uL (150-450); RED BLOOD COUNT 3.97 10^6/uL (4.30-6.10); WHITE BLOOD COUNT 9.4 10^3/uL (4.0-10.0)
[2020-02-28 14:58] LABS: ABG BASE EXCESS 0.7 (-2.0-2.0); ABG HCO3 23.7 MEQ/L (22.0-26.0); ABG O2 SATURATION 97.2 % (95.0-99.0); ABG PARTIAL PRESSURE CO2 32.9 mmHg (35.0-45.0); ABG STANDARD HCO3 25.1 MEQ/L (22.0-26.0); ABG TOTAL CO2 24.7 MEQ/L (23.0-31.0); ABG pH (ARTERIAL) 7.475 UNITS (7.350-7.450)
--- NOTE | 2020-02-28 14:58 | REP ---
INDICATION: Altered Mental Status COMPARISON: 02/13/2020 TECHNIQUE: Portable AP view of the chest FINDINGS: Right-sided opacities consistent with airspace disease and moderate/large pleural effusion. Left hemithorax is clear. Mediastinum and cardiac silhouette are stable. IMPRESSION: Large right-sided opacity and moderate to large right pleural effusion <Electronically signed by Colin Jaramillo > 02/28/20 1452
[2020-02-28 15:29] LABS: RSV AMPLIFICATION NEGATIVE (NEGATIVE)
[2020-02-28 15:34] LABS: ACETAMINOPHEN LEVEL < 2.0 UG/ML (10.0-30.0); ALBUMIN 1.9 GM/DL (3.2-5.2); ALT/SGPT 19 U/L (12-78); BILIRUBIN,DIRECT 0.3 MG/DL (0.0-0.2); BILIRUBIN,TOTAL 0.7 MG/DL (0.2-1.0); BLOOD UREA NITROGEN 13 MG/DL (7-18); CALCIUM LEVEL 7.7 MG/DL (8.8-10.2); CARBON DIOXIDE LEVEL 28 MEQ/L (21-32); CHLORIDE LEVEL 107 MEQ/L (98-107); CK-MB VALUE MASS 1.6 NG/ML (<3.6); CPK CREATINE PHOSPHOKINASE 63 U/L (39-308); CREATININE FOR GFR 0.84 MG/DL (0.70-1.30); GLOMERULAR FILTRATION RATE > 60.0 (>42); GLUCOSE, FASTING 108 MG/DL (70-100); MB/CK RELATIVE INDEX 2.54 (< OR =4); NT-PRO BNP 704 PG/ML (<450); POTASSIUM SERUM 3.9 MEQ/L (3.5-5.1); SALICYLATE LEVEL < 1.7 MG/DL (5.0-30.0); SODIUM LEVEL 139 MEQ/L (136-145); TOTAL PROTEIN 6.1 GM/DL (6.4-8.2); TROPONIN I < 0.02 NG/ML (< 0.10)
[2020-02-28] MEDS ORDERED: BENZ200C70 PO (15:40)
[2020-02-28] MEDS ORDERED: PT COMMENT (15:40)
[2020-02-28] MEDS ORDERED: GABA-1171 PO (15:40)
[2020-02-28] MEDS ORDERED: BACL5TAB2 PO (15:40)
[2020-02-28] MEDS ORDERED: LevoFLOXacin IV 500 MG in IV 1 EA IV ONE (15:45)
--- NOTE | 2020-02-28 17:41 | HPEPDOC ---
[facility] Medical History & Physical Date of Admission Feb 28, 2020 Date of Service: Feb 28, 2020 History and Physical CHIEF COMPLAINT: cough sob since Sunday HISTORY OF PRESENT ILLNESS: 75M [address] from [facility] s/ cholecystostomy tube placement for acute cholecystitis complicated by aspiration and dysphagia, sent home w picc line and ivfluids for PEG tube placement to be done in [place], brought in to the ER due to worsening cough dry and sob since Sunday when the pt was discharged home w 11/09 care. He has expressive aphasia which has worsened and Son is providing the history. No meds have been restart ed since the patient has been home. Pt communicates by using his hands and fingers, slurred and soft speech. NO documented fever, chills, n/v/diarrhea. no purulent drainage via right cholecystostomy tube. In the ER, pt was afebrile, but cxr: mod large pleural effusion/consolidation. Hospitalist was asked to admit for aspiration pneumonia, right parapneumonia effusion, dysphagia/aspiration, and deconditioning with chronic lower extremity edema PAST MEDICAL HISTORY: cholecystitis, cholecystostomy tube, multisystem atrophy, dysphagia needing feeding tube, right LE dvt 02/2019 PAST SURGICAL HISTORY: appy hip replacement colonoscopy cholecystostomy tube SOCIAL HISTORY: has 11/09 care at home. retired no cig/etoh/drug use FAMILY HISTORY: father, DM2 ALLERGIES: Please see below. REVIEW OF SYSTEMS: limited 12 point ROS due to expressive aphasia and slurred speech. obtained from pt's son HOME MEDICATIONS: Please see below. PHYSICAL EXAMINATION: VITAL SIGNS: see below GENERAL APPEARANCE: disheveled. mild distress no pallor unable to speak clearly slurred speech mumbling HEENT: no jvd stridor moist mm no cervical Lad no carotid bruits CARDIOVASCULAR: S1S2 RRR LUNGS: diminished right 1/2 way up. left clear ABDOMEN:right cholecystostomy tube w/o purulence soft nt nd +bs x 4quadrants EXTREMITIES:2+ edema to sacrum right arm picc line 02/25/[address] [facility] NEURO: expressive aphasia. face symmetric. has spontaneous movements PERRLA unable to do EOM testing, finger to nose. LABORATORY DATA: See below. IMAGING: see below MICROBIOLOGY: Please see below. ASSESSMENT: 75[address] [facility] s/p cholecystostomy tube placement for acute cholecystitis complicated by aspiration and dysphagia, sent home w picc line and ivfluids for PEG tube placement to be done in [place], brought in to the ER due to worsening cough dry and sob since Sunday when the pt was discharged home w 11/09 care. He has expressive aphasia which has worsened and Son is providing the history. No meds have been restarted since the patient has been home. Pt communicates by using his hands and fingers, slurred and soft speech. NO documented fever, chills, n/v/diarrhea. no purulent drainage via right cholecystostomy tube. In the ER, pt was afebrile, but cxr: mod large pleural effusion/consolidation. Hospitalist was asked to admit for aspiration pneumonia, right parapneumonia effusion, dysphagia/aspiration, and deconditioning with chronic lower extremity edema . Right sided parapneumonic effusion -CT chest, thoracentesis, zosyn and vanco. -check mrsa screen -droplet precautions -pleural fluid analysis -2d echo Aspiration -npo -picc line -fur stylist for tpn recommendations until peg can be placed -once pna and respiratory status are stable, gen surgery for peg cholecystostomy tube -no purulent drainage -prior cholecystitis h/o LE DVT 02/2019 with b/l LE edema -check b/l LE dopplers -compression stockings until thoracentesis done due to increased risk of bleeding with thoracentesis if on lovenox Multisystem Atrophy -dependent for ADLs -has 24are at home Dysphagia with aspiration -per son, due to recent EGD and anesthesia at [facility] -npo -peg tube in the future once respiratory status andeffusion resolved -tpn for now Vital Signs Vital Signs Date Time Temp Pulse Resp B/P (MAP) Pulse Ox O2 Delivery O2 Flow Rate FiO2 02/28/20 16:00 68 20 150/84 (106) 93 Room Air 02/28/20 14:22 98.2 Laboratory Data Labs 24H Laboratory Tests 2 02/28/20 14:24: Anion Gap 4L, Glomerular Filtration Rate > 60.0, Lactic Acid Level 1.0, Calcium Level 7.7L, Total Bilirubin 0.7, Direct Bilirubin 0.3H, Aspartate Amino Transf (AST/SGOT) 21, Alanine Aminotransferase (ALT/SGPT) 19, Alkaline Phosphatase 83, Ammonia 25, Total Creatine Kinase 63, Creatine Kinase MB 1.6, Creatine Kinase MB Relative Index 2.54, Troponin I < 0.02, VE-Puy-O-Type Natriuretic Peptide 704H, Total Protein 6.1L, Albumin 1.9L, Albumin/Globulin Ratio 0.5, Thyroid Stimulating Hormone (TSH) 4.690H, Salicylates Level < 1.7L, Acetaminophen Level < 2.0L 02/28/20 14:30: Immature Granulocyte % (Auto) 0.2, Neutrophils (%) (Auto) 78.0H, Lymphocytes (%) (Auto) 13.4L, Monocytes (%) (Auto) 7.1H, Eosinophils (%) (Auto) 1.1, Basophils (%) (Auto) 0.2, Neutrophils # (Auto) 7.4, Lymphocytes # (Auto) 1.3L, Monocytes # (Auto) 0.7, Eosinophils # (Auto) 0.1, Basophils # (Auto) 0.0, Nucleated Red Blood Cells % (auto) 0.0, Coronavirus (COVID-19)(PCR) NEGATIVE, Influenza Type A (RT-PCR) NEGATIVE, Influenza Type B (RT-PCR) NEGATIVE, Respiratory Syncytial Virus (PCR) NEGATIVE 02/28/20 14:45: Blood Gas Bicarbonate Standard 25.1, Arterial Blood pH 7.475H, Arterial Blood Partial Pressure CO2 32.9L, Arterial Blood Partial Pressure O2 87.0, Arterial Blood Total CO2 24.7, Arterial Blood HCO3 23.7, Arterial Blood Base Excess 0.7, Arterial Blood Oxygen Saturation 97.2 CBC/BMP Laboratory Tests 02/28/20 14:24 02/28/20 14:30 Microbiology Microbiology 02/28/20 Blood Culture, Received Pending 02/28/20 Blood Culture, Received Pending Home Medications Scheduled Acetaminophen (Tylenol Arthritis) 650 Mg Tablet.er, 650 MG PO BID Apixaban (Eliquis) 5 Mg Tablet, 5 MG PO BID Bupropion HCl (Bupropion Xl) 300 Mg Tab.er.24h, 300 MG PO DAILY Melatonin (Melatonin) 5 Mg Tablet, 10 MG PO QHS Mirtazapine (Remeron) 15 Mg Tablet, 15 MG PO QHS Trihexyphenidyl HCl (Trihexyphenidyl HCl) 2 Mg Tablet, 2 MG PO QHS Scheduled PRN Baclofen (Baclofen) 5 Mg Tablet, 5 MG PO Q8H PRN for HICCUPS Benzonatate (Benzonatate) 200 Mg Capsule, 200 MG PO TID PRN for HICCUPS MDD 3 Gabapentin (Gabapentin) 100 Mg Capsule, 100 MG PO BID PRN for HICCUPS Miscellaneous Medications [Pt Comment] PT FAMILY STATES NO ORAL MEDS IN OVER 10 DAYS Allergies Coded Allergies: No Known Allergies (Verified Allergy, Unknown, 02/05/20) A-FIB/CHADSVASC A-FIB History Current/History of A-Fib/PAF?: No Current PO Anticoag Therapy: No Age/Risk Factor Scoring CHADSVASC: CHADSVASC Response (Comments) Value Age Risk Factor Age >/= 75 years old 2 Gender Risk Factor Male 0 Hx of CHF No 0 Hx of HTN No 0 Hx of Stroke/TIA/or VTE No 0 Hx of Diabetes No 0 Hx of Vascular Disease No 0 Total 2 Treatment Treatment ordered: NONE SONJA BURNHAM MD Feb 28, 2020 17:41
--- NOTE | 2020-02-28 18:16 | ECGEPIP ---
[facility] - ED Test Date: 2020-02-28 Pat Name: JIM LAW Department: Room: - Gender: Male Visiting Nurse: LINNEA : 1945 Requested By: Eva Acosta Order Number: [id number] Reading MD: Eva Acosta Measurements Intervals [place] Rate: 70 P: -3 OK: 151 QRS: -17 QRSD: 98 T: 35 QT: 343 QTc: 371 Interpretive Statements SINUS RHYTHM LEFTWARD AXIS NONSPECIFIC T-WAVE ABNORMALITY 02/13/[address] T WAVE CHANGES Electronically Signed on 02-28-2020 18:16:08 EST by Eva Acosta
--- NOTE | 2020-02-28 18:43 | REPVR ---
PROCEDURE INFORMATION: Exam: US Duplex Lower Extremity Veins, Bilateral Exam date and time: 02/28/2020 6:19 PM Age: 75 years old Clinical indication: Pain; Leg, lower; Bilateral; Additional info: Edema R/O dvt TECHNIQUE: Imaging protocol: Real-time duplex ultrasound of the extremities with 2-D solomon scale, color Doppler flow and spectral waveform analysis with image documentation. Complete exam focused on the bilateral lower extremity veins. COMPARISON: No relevant prior studies available. FINDINGS: Right deep veins: Unremarkable. The common femoral, femoral and popliteal veins are patent without thrombus. Normal Doppler waveforms. Normal compressibility and/or augmentation response. Right superficial veins: Saphenofemoral junction is patent without thrombus. Left deep veins: Mild wall thickening of the common femoral and proximal femoral veins with associated thin, echogenic peripheral stranding, possibly reflecting sequelae of remote thrombus. The mid to distal femoral and popliteal veins are patent without thrombus. Left superficial veins: Saphenofemoral junction is patent without thrombus. Soft tissues: Bilateral subcutaneous edema. IMPRESSION: Mild wall thickening of the left common femoral and proximal femoral veins with associated thin, echogenic peripheral stranding, possibly reflecting sequelae of remote thrombus. No acute thrombus. Electronically signed by: Héctor Hill On 02/28/2020 18:43:49 PM
[2020-02-28] MEDS: LACTOBACILLUS ACIDOPHILUS CAP (BACID) PO SCH (19:05)
[2020-02-28] MEDS: DOXYCYCLINE HYCLATE 100 MG in D5W MINI-BAG PLUS 100 ML IV SCH (20:53)
[2020-02-28 22:10] VITALS: BP 120/74
[2020-02-29] VITALS: BP 132/77
[2020-02-29] MEDS: PIPERACILLIN/TAZOBACTAM SOD 3.375 GM in D5W MINI-BAG PLUS 50 ML IV SCH ×4 (00:48→17:21)
[2020-02-29 04:00] VITALS: BP 135/77
[2020-02-29 04:57] LABS: BASO % 0.1 % (0.0-1.0); EOS # 0.1 10^3/uL (0.0-0.5); EOS % 1.8 % (0.0-3.0); HEMATOCRIT 37.6 % (42.0-52.0); LYMPH % 12.5 % (24.0-44.0); MEAN CORPUSCULAR HEMOGLOBIN 32.2 pg (27.0-33.0); MEAN CORPUSCULAR HGB CONC 31.9 g/dl (32.0-36.5); MEAN CORPUSCULAR VOLUME 100.8 fl (80.0-96.0); MONO # 0.6 10^3/uL (0.0-0.8); MONO % 8.1 % (0.0-5.0); NEUTROPHILS # 5.9 10^3/uL (1.5-8.5); NEUTROPHILS % 77.2 % (36.0-66.0); PLATELET COUNT, AUTOMATED 248 10^3/uL (150-450); RED BLOOD COUNT 3.73 10^6/uL (4.30-6.10); WHITE BLOOD COUNT 7.7 10^3/uL (4.0-10.0)
[2020-02-29 05:29] LABS: BLOOD UREA NITROGEN 14 MG/DL (7-18); CALCIUM LEVEL 7.9 MG/DL (8.8-10.2); CARBON DIOXIDE LEVEL 29 MEQ/L (21-32); CHLORIDE LEVEL 107 MEQ/L (98-107); CREATININE FOR GFR 0.92 MG/DL (0.70-1.30); GLOMERULAR FILTRATION RATE > 60.0 (>42); GLUCOSE, FASTING 97 MG/DL (70-100); POTASSIUM SERUM 3.8 MEQ/L (3.5-5.1); SODIUM LEVEL 140 MEQ/L (136-145)
[2020-02-29] MEDS: NS 1,000 ML IV SCH ×2 (06:41→17:21)
[2020-02-29] MEDS: LACTOBACILLUS ACIDOPHILUS CAP (BACID) PO SCH ×2 (07:56→15:10)
[2020-02-29] MEDS: DOXYCYCLINE HYCLATE 100 MG in D5W MINI-BAG PLUS 100 ML IV SCH ×2 (07:58→20:54)
[2020-02-29 08:07] VITALS: BP 141/72
--- NOTE | 2020-02-29 09:10 | REP ---
INDICATION: effusion r/o loculation COMPARISON: 02/05/2020 TECHNIQUE: Axial noncontrast images from the thoracic inlet to the upper abdomen with coronal and sagittal reformations. This CT examination was performed using the following dose reduction techniques: Automated exposure control, adjustment of mA and/or kv according to the patient's size, and use of iterative reconstruction technique. FINDINGS: Large right pleural effusion with underlying right lower lobe and partial right middle lobe and right upper lobe collapse. Streaky left perihilar and left lower lobe atelectasis also suggested. Mediastinum demonstrates stable atherosclerotic changes to the thoracic aorta and coronary arteries without aortic aneurysm or cardiomegaly. No pericardial effusion. The osseous structures appear grossly intact. Visualized upper abdomen demonstrates a percutaneous pigtail catheter extending to the gallbladder fossa and there appears to be a moderate to large subcapsular fluid collection along the periphery of the hepatic margin measuring approximately 21 by 16 by 6 cm with density suggesting complex fluid versus hematoma. IMPRESSION: 1. Large right pleural effusion with underlying elements of right lower lobe, right middle lobe and right upper lobe collapse along with streaky left basilar atelectasis. 2. There is a large subcapsular hepatic collection along the periphery of the liver margin with an associated percutaneous pigtail catheter extending through the collection to the gallbladder fossa. The density of the subcapsular fluid is mixed low-density suggesting either complex proteinaceous material and or partially hemorrhagic fluid. <Electronically signed by Colin Jaramillo > 02/29/20 0907
[2020-02-29 12:00] VITALS: BP 138/65
--- NOTE | 2020-02-29 12:09 | IPNPDOC ---
Date Seen The patient was seen on 02/29/20. Progress Note SUBJECTIVE: Son at the bedside provided ROS as pt is mumbling with slurred speech. no fever / chills no n/v/abd painl cholecystostomy tube in place. did not need suctioning overnight. PHYSICAL EXAMINATION: VITAL SIGNS: see below GENERAL APPEARANCE: disheveled.mouth open. dry mm difficult to understand and mumbling. no use of acc resp mm HEENT: no jvd stridor no cervical Lad no carotid bruits CARDIOVASCULAR: S1S2 RRR LUNGS: diminished right 1/2 way up. left clear ABDOMEN:right cholecystostomy tube w/o purulence soft nt nd +bs x 4quadrants EXTREMITIES:2+ edema to sacrum right arm picc line 02/25/20 from [facility] NEURO: expressive aphasia. face symmetric. has spontaneous movements PERRLA unable to do EOM testing, finger to nose. LABORATORY DATA: See below. IMAGING: see below IMAGING STUDIES: 02/29/20 CT CHEST COMPARISON: 02/05/2020 TECHNIQUE: Axial noncontrast images from the thoracic inlet to the upper abdomen with coronal and sagittal reformations. This CT examination was performed using the following dose reduction techniques: Automated exposure control, adjustment of mA and/or kv according to the patient's size, and use of iterative reconstruction technique. FINDINGS: Large right pleural effusion with underlying right lower lobe and partial right middle lobe and right upper lobe collapse. Streaky left perihilar and left lower lobe atelectasis also suggested. Mediastinum demonstrates stable atherosclerotic changes to the thoracic aorta and coronary arteries without aortic aneurysm or cardiomegaly. No pericardial effusion. The osseous structures appear grossly intact. Visualized upper abdomen demonstrates a percutaneous pigtail catheter extending to the gallbladder fossa and there appears to be a moderate to large subcapsular fluid collection along the periphery of the hepatic margin measuring approximately 21 by 16 by 6 cm with density suggesting complex fluid versus hematoma. IMPRESSION: 1. Large right pleural effusion with underlying elements of right lower lobe, right middle lobe and right upper lobe collapse along with streaky left basilar atelectasis. 2. There is a large subcapsular hepatic collection along the periphery of the liver margin with an associated percutaneous pigtail catheter extending through the collection to the gallbladder fossa. The density of the subcapsular fluid is mixed low-density suggesting either complex proteinaceous material and or partially hemorrhagic fluid. <Electronically signed by Colin Ella > 02/29/20 0907 02/28/20 DOPPLERS BILATERAL LE. Exam: US Duplex Lower Extremity Veins, Bilateral Exam date and time: 02/28/2020 6:19 PM Age: 75 years old Clinical indication: Pain; Leg, lower; Bilateral; Additional info: Edema R/O dvt TECHNIQUE: Imaging protocol: Real-time duplex ultrasound of the extremities with 2-D solomon scale, color Doppler flow and spectral waveform analysis with image documentation. Complete exam focused on the bilateral lower extremity veins. COMPARISON: No relevant prior studies available. FINDINGS: Right deep veins: Unremarkable. The common femoral, femoral and popliteal veins are patent without thrombus. Normal Doppler waveforms. Normal compressibility and/or augmentation response. Right superficial veins: Saphenofemoral junction is patent without thrombus. Left deep veins: Mild wall thickening of the common femoral and proximal femoral veins with associated thin, echogenic peripheral stranding, possibly reflecting sequelae of remote thrombus. The mid to distal femoral and popliteal veins are patent without thrombus. Left superficial veins: Saphenofemoral junction is patent without thrombus. Soft tissues: Bilateral subcutaneous edema. IMPRESSION: Mild wall thickening of the left common femoral and proximal femoral veins with associated thin, echogenic peripheral stranding, possibly reflecting sequelae of remote thrombus. No acute thrombus. Electronically signed by: Héctor Hill On 02/28/2020 18:43:49 PM MICROBIOLOGY: Please see below. ASSESSMENT: 75M discharged from [facility] s/p cholecystostomy tube placement for acute cholecystitis complicated by aspiration and dysphagia, sent home w picc line and ivfluids for PEG tube placement to be done in [place], brought in to the ER due to worsening cough dry and sob since Sunday when the pt was discharged home w 11/09 care. He has expressive aphasia which has worsened and Son is providing the history. No meds have been restarted since the patient has been home. Pt communicates by using his hands and fingers, slurred and soft speech. NO documented fever, chills, n/v/diarrhea. no purulent drainage via right cholecystostomy tube. In the ER, pt was afebrile, but cxr: mod large pleural effusion/consolidation. Hospitalist was asked to admit for aspiration pneumonia, right parapneumonia effusion, dysphagia/aspiration, and deconditioning with chronic lower extremity edema . Right large effusion -CT chest, thoracentesis, zosyn and vanco for hospital acquired pneumonia -check mrsa screen -droplet precautions -pleural fluid analysis -2d echo Right HCAP/Aspiration pneumonia -recently discharged from [facility] 02/25/20 where he was treated for acute cholecystitis s/p cholecystostomy tube. -no fever or wbc Aspiration -npo -midline cather from [facility] 02/25/20 -chief mechanical engineer for tpn recommendations until peg can be placed -PICC line ordered from 03/01/20 -once pna and respiratory status are stable, gen surgery for peg -General surgery-Dr. Rice consulted but requested to obtain [facility] EGD report which son reports had complications. if unable to place endoscopic PEG tube, will need interventional radiology to do jejunostomy tube. cholecystostomy tube -no purulent drainage -prior cholecystitis h/o LE DVT 02/2019 with b/l LE edema -repeat us b/l LE: recent thrombus. 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 --once pna and respiratory status are stable, gen surgery for peg -General surgery-Dr. Rice consulted but requested to obtain [facility] EGD report which son reports had complications. if unable to place endoscopic PEG tube, will need interventional radiology to do jejunostomy tube. diet: npo due to dysphagia and aspiration. on ivfluids for now via MIDLINE 02/25/20 [facility] PICC line Sunday and Card Processing Clerk for TPN recommendations PEG tube requested, but may need IR to place jejunostomy tube if prior complications with EGD at [facility]. DVT: compression stockings. CODE status: DNR/DNI VS, I&O, 24H, Fishbone Vital Signs/I&O Vital Signs Date Time Temp Pulse Resp B/P (MAP) Pulse Ox O2 Delivery O2 Flow Rate FiO2 02/29/20 08:07 97.4 64 20 141/72 (95) 94 Room Air I&O- Last 24 Hours up to 6 AM 02/29/20 06:00 Intake Total 200 ml Output Total 220 ml Balance -20 ml Laboratory Data 24H LABS Laboratory Tests 2 02/28/20 14:24: Anion Gap 4L, Glomerular Filtration Rate > 60.0, Lactic Acid Level 1.0, Calcium Level 7.7L, Total Bilirubin 0.7, Direct Bilirubin 0.3H, Aspartate Amino Transf (AST/SGOT) 21, Alanine Aminotransferase (ALT/SGPT) 19, Alkaline Phosphatase 83, Ammonia 25, Total Creatine Kinase 63, Creatine Kinase MB 1.6, Creatine Kinase MB Relative Index 2.54, Troponin I < 0.02, QS-Cyw-W-Type Natriuretic Peptide 704H, Total Protein 6.1L, Albumin 1.9L, Albumin/Globulin Ratio 0.5, Thyroid Stimulating Hormone (TSH) 4.690H, Salicylates Level < 1.7L, Acetaminophen Level < 2.0L 02/28/20 14:30: Immature Granulocyte % (Auto) 0.2, Neutrophils (%) (Auto) 78.0H, Lymphocytes (%) (Auto) 13.4L, Monocytes (%) (Auto) 7.1H, Eosinophils (%) (Auto) 1.1, Basophils (%) (Auto) 0.2, Neutrophils # (Auto) 7.4, Lymphocytes # (Auto) 1.3L, Monocytes # (Auto) 0.7, Eosinophils # (Auto) 0.1, Basophils # (Auto) 0.0, Nucleated Red Blood Cells % (auto) 0.0, Coronavirus (COVID-19)(PCR) NEGATIVE, Influenza Type A (RT-PCR) NEGATIVE, Influenza Type B (RT-PCR) NEGATIVE, Respiratory Syncytial Virus (PCR) NEGATIVE 02/28/20 14:45: Blood Gas Bicarbonate Standard 25.1, Arterial Blood pH 7.475H, Arterial Blood Partial Pressure CO2 32.9L, Arterial Blood Partial Pressure O2 87.0, Arterial Blood Total CO2 24.7, Arterial Blood HCO3 23.7, Arterial Blood Base Excess 0.7, Arterial Blood Oxygen Saturation 97.2 02/28/20 19:34: TJ-Pdq-S-Type Natriuretic Peptide 620H, Lactate Dehydrogenase 211 02/29/20 04:21: Immature Granulocyte % (Auto) 0.3, Neutrophils (%) (Auto) 77.2H, Lymphocytes (%) (Auto) 12.5L, Monocytes (%) (Auto) 8.1H, Eosinophils (%) (Auto) 1.8, Basophils (%) (Auto) 0.1, Neutrophils # (Auto) 5.9, Lymphocytes # (Auto) 1.0L, Monocytes # (Auto) 0.6, Eosinophils # (Auto) 0.1, Basophils # (Auto) 0.0, Nucleated Red Blood Cells % (auto) 0.0, Anion Gap 4L, Glomerular Filtration Rate > 60.0, Calcium Level 7.9L 02/29/20 04:31: Bedside Glucose (Misc Panel) 98 02/29/20 06:37: Methicillin-Resist S.aureus DNA PCR NOT DETECTED CBC/BMP Laboratory Tests 02/28/20 14:24 02/28/20 14:30 02/29/20 04:21 Microbiology Microbiology 02/28/20 Blood Culture, Received Pending 02/28/20 Blood Culture, Received Pending SONJA BURNHAM MD Feb 29, 2020 11:52
[2020-02-29 15:45] VITALS: BP 162/79
[2020-02-29 20:00] VITALS: BP 152/78
[2020-03-01] VITALS: BP 157/82
[2020-03-01] MEDS: PIPERACILLIN/TAZOBACTAM SOD 3.375 GM in D5W MINI-BAG PLUS 50 ML IV SCH ×4 (00:46→18:24)
[2020-03-01 04:00] VITALS: BP 158/82
[2020-03-01 06:46] LABS: BASO % 0.2 % (0.0-1.0); EOS # 0.2 10^3/uL (0.0-0.5); EOS % 1.8 % (0.0-3.0); HEMATOCRIT 40.1 % (42.0-52.0); HEMOGLOBIN 12.5 g/dl (13.5-17.5); LYMPH # 1.1 10^3/uL (1.5-5.0); LYMPH % 12.9 % (24.0-44.0); MEAN CORPUSCULAR HEMOGLOBIN 31.3 pg (27.0-33.0); MEAN CORPUSCULAR HGB CONC 31.2 g/dl (32.0-36.5); MEAN CORPUSCULAR VOLUME 100.3 fl (80.0-96.0); MONO # 0.7 10^3/uL (0.0-0.8); MONO % 8.2 % (0.0-5.0); NEUTROPHILS # 6.3 10^3/uL (1.5-8.5); NEUTROPHILS % 76.5 % (36.0-66.0); PLATELET COUNT, AUTOMATED 245 10^3/uL (150-450); WHITE BLOOD COUNT 8.2 10^3/uL (4.0-10.0)
[2020-03-01] MEDS ORDERED: FUROSEMIDE 20MG/2ML VIAL (J1940) IV ONE (07:00)
[2020-03-01 07:12] LABS: BLOOD UREA NITROGEN 14 MG/DL (7-18); CALCIUM LEVEL 7.8 MG/DL (8.8-10.2); CARBON DIOXIDE LEVEL 25 MEQ/L (21-32); CHLORIDE LEVEL 107 MEQ/L (98-107); CREATININE FOR GFR 0.92 MG/DL (0.70-1.30); GLOMERULAR FILTRATION RATE > 60.0 (>42); GLUCOSE, FASTING 98 MG/DL (70-100); POTASSIUM SERUM 3.6 MEQ/L (3.5-5.1); SODIUM LEVEL 140 MEQ/L (136-145)
[2020-03-01 08:00] VITALS: BP 143/79
[2020-03-01] MEDS: LACTOBACILLUS ACIDOPHILUS CAP (BACID) PO SCH ×2 (08:00→17:35)
[2020-03-01] MEDS: DOXYCYCLINE HYCLATE 100 MG in D5W MINI-BAG PLUS 100 ML IV SCH ×2 (08:33→20:10)
--- NOTE | 2020-03-01 10:15 | IPNPDOC ---
Date Seen The patient was seen on 03/01/20. Progress Note SUBJECTIVE: per son, continues to silently aspirate and cough all night. with sob pt is nonverbal and difficult to understand. no fever or chills. not on o2 no hypoxia overngiht. PHYSICAL EXAMINATION: VITAL SIGNS: see below GENERAL APPEARANCE: disheveled. HOD 40degrees no pallor or icterus. mouth open. dry mm difficult to understand and mumbling. + use of acc resp mm HEENT: no jvd stridor no cervical Lad no carotid bruits CARDIOVASCULAR: S1S2 RRR LUNGS: diminished in right base to 1/2 way up with rhonchi. left lung clear ABDOMEN:right cholecystostomy tube w/o purulence soft nt nd +bs x 4quadrants EXTREMITIES:2+ edema to sacrum right arm mid line 02/25/20 from [facility] NEURO: expressive aphasia. face symmetric. has spontaneous movements unable to do EOM testing, finger to nose. LABORATORY DATA: See below. IMAGING: see below IMAGING STUDIES: 02/29/20 CT CHEST COMPARISON: 02/05/2020 TECHNIQUE: Axial noncontrast images from the thoracic inlet to the upper abdomen with coron al and sagittal reformations. This CT examination was performed using the following dose reduction techniques: Automated exposure control, adjustment of mA and/or kv according to the patient's size, and use of iterative reconstruction technique. FINDINGS: Large right pleural effusion with underlying right lower lobe and partial right middle lobe and right upper lobe collapse. Streaky left perihilar and left lower lobe atelectasis also suggested. Mediastinum demonstrates stable atherosclerotic changes to the thoracic aorta and coronary arteries without aortic aneurysm or cardiomegaly. No pericardial effusion. The osseous structures appear grossly intact. Visualized upper abdomen demonstrates a percutaneous pigtail catheter extending to the gallbladder fossa and there appears to be a moderate to large subcapsular fluid collection along the periphery of the hepatic margin measuring approximately 21 by 16 by 6 cm with density suggesting complex fluid versus hematoma. IMPRESSION: 1. Large right pleural effusion with underlying elements of right lower lobe, right middle lobe and right upper lobe collapse along with streaky left basilar atelectasis. 2. There is a large subcapsular hepatic collection along the periphery of the liver margin with an associated percutaneous pigtail catheter extending through the collection to the gallbladder fossa. The density of the subcapsular fluid is mixed low-density suggesting either complex proteinaceous material and or partially hemorrhagic fluid. <Electronically signed by Colin Ella > 02/29/20 0907 02/28/20 DOPPLERS BILATERAL LE. Exam: US Duplex Lower Extremity Veins, Bilateral Exam date and time: 02/28/2020 6:19 PM Age: 75 years old Clinical indication: Pain; Leg, lower; Bilateral; Additional info: Edema R/O dvt TECHNIQUE: Imaging protocol: Real-time duplex ultrasound of the extremities with 2-D solomon scale, color Doppler flow and spectral waveform analysis with image documentation. Complete exam focused on the bilateral lower extremity veins. COMPARISON: No relevant prior studies available. FINDINGS: Right deep veins: Unremarkable. The common femoral, femoral and popliteal veins are patent without thrombus. Normal Doppler waveforms. Normal compressibility and/or augmentation response. Right superficial veins: Saphenofemoral junction is patent without thrombus. Left deep veins: Mild wall thickening of the common femoral and proximal femoral veins with associated thin, echogenic peripheral stranding, possibly reflecting sequelae of remote thrombus. The mid to distal femoral and popliteal veins are patent without thrombus. Left superficial veins: Saphenofemoral junction is patent without thrombus. Soft tissues: Bilateral subcutaneous edema. IMPRESSION: Mild wall thickening of the left common femoral and proximal femoral veins with associated thin, echogenic peripheral stranding, possibly reflecting sequelae of remote thrombus. No acute thrombus. Electronically signed by: Héctor Hill On 02/28/2020 18:43:49 PM MICROBIOLOGY: Please see below. ASSESSMENT: 75M discharged from [facility] s/p cholecystostomy tube placement for acute cholecystitis complicated by aspiration and dysphagia, sent home w picc line and ivfluids for PEG tube placement to be done in [place], brought in to the ER due to worsening cough dry and sob since Sunday when the pt was discharged home w 11/09 care. He has expressive aphasia which has worsened and Son is providing the history. No meds have been restarted since the patient has been home. Pt communicates by using his hands and fingers, slurred and soft speech. NO documented fever, chills, n/v/diarrhea. no purulent drainage via right cholecystostomy tube. In the ER, pt was afebrile, but cxr: mod large pleural effusion/consolidation. Hospitalist was asked to admit for aspiration pneumonia, right parapneumonia effusion, dysphagia/aspiration, and deconditioning with chronic lower extremity edema . Right parapneumonic effusion/HCAP -CT chest reviewed -us guided thoracentesis with pleural fluid analysis -on iv zosyn and vanco for hospital acquired pneumonia -droplet precautions -2d echo chronic Aspiration -repeat speech eval -obtain records from previous EGD in [place] 6-7years ago -clinical laboratory medical director for tpn recommendations until peg can be placed -PICC line ordered -may dc midline once picc line is placed -once pna and respiratory status are stable, gen surgery for peg -General surgery-Dr. Rice consulted but requested to obtain [facility] EGD report which son reports had complications. if unable to place endoscopic PEG tube, will need interventional radiology to do jejunostomy tube. chronic Dysphagia -had EGD and dilation per son 6-7years ago at [facility] -per surgery, obtain records and repeat swallow eval cholecystostomy tube from [facility] -no purulent drainage -prior cholecystitis h/o LE DVT 02/2019 with b/l LE edema -repeat us b/l LE: recent thrombus. 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 on ivfluids for now via MIDLINE 02/25/20 [facility] PICC line Sunday and Medical Record Consultant for TPN recommendations PEG tube requested, but may need IR to place jejunostomy tube if prior complications with EGD at [facility]. DVT: compression stockings. CODE status: DNR/DNI VS, I&O, 24H, Fishbone Vital Signs/I&O Vital Signs Date Time Temp Pulse Resp B/P (MAP) Pulse Ox O2 Delivery O2 Flow Rate FiO2 03/01/20 08:00 97.0 69 26 143/79 (100) 93 Room Air I&O- Last 24 Hours up to 6 AM 03/01/20 06:00 Intake Total 1325 ml Output Total 5 ml Balance 1320 ml Laboratory Data 24H LABS Laboratory Tests 2 02/29/20 12:06: Bedside Glucose (Misc Panel) 102 03/01/20 01:23: Bedside Glucose (Misc Panel) 91 03/01/20 05:36: Bedside Glucose (Misc Panel) 84 03/01/20 06:31: Immature Granulocyte % (Auto) 0.4, Neutrophils (%) (Auto) 76.5H, Lymphocytes (%) (Auto) 12.9L, Monocytes (%) (Auto) 8.2H, Eosinophils (%) (Auto) 1.8, Basophils (%) (Auto) 0.2, Neutrophils # (Auto) 6.3, Lymphocytes # (Auto) 1.1L, Monocytes # (Auto) 0.7, Eosinophils # (Auto) 0.2, Basophils # (Auto) 0.0, Nucleated Red Blood Cells % (auto) 0.0, Anion Gap 8, Glomerular Filtration Rate > 60.0, Calcium Level 7.8L CBC/BMP Laboratory Tests 03/01/20 06:31 Microbiology Microbiology 02/28/20 Blood Culture - Preliminary, Resulted No growth after 24 hours . All specim... 02/28/20 Blood Culture - Preliminary, Resulted No growth after 24 hours . All specim... SONJA BURNHAM MD Mar 01, 2020 10:15
[2020-03-01] MEDS ORDERED: LIDOCAINE 1% MDV 20ML VIAL As Ordered ONE (11:20)
--- NOTE | 2020-03-01 12:41 | REP ---
INDICATION: POST THORA, . COMPARISON: 02/28/2020. TECHNIQUE: Single portable view of the chest is performed status post right thoracentesis. FINDINGS: There is no pneumothorax. There is mild residual right pleural fluid/thickening. There is patchy parenchymal opacity in the right lung base. There is significant decrease in the amount of right pleural fluid. Right arm PICC line is noted with the tip at the junction of the superior vena cava and right atrium. Left lung is clear. Heart and mediastinum are unchanged. IMPRESSION: No pneumothorax status post right thoracentesis, with decreased amount of right pleural fluid when compared to the prior study. <Electronically signed by Joseph Elkins > 03/01/20 [id number]
[2020-03-01 12:53] LABS: APPEARANCE, BODY FLUID HAZY (CLEAR); PLEURAL FL COLOR YELLOW (COLORLESS); SOURCE, BODY FLUID PLEURAL
[2020-03-01 13:00] VITALS: BP 148/72
[2020-03-01 13:36] LABS: PH BODY FLUID 7.683 UNITS (NOT ESTABLISHED); SOURCE, BODY FLUID pH PLEURAL
[2020-03-01 13:45] LABS: AMYLASE, BODY FLUID 26 U/L (NOT ESTABLISHED); CHOLESTEROL, BODY FLUID 68 MG/DL (NOT ESTABLISHED); LDH, BODY FLUID 283 U/L (NOT ESTABLISHED); SOURCE, BODY FLUID AMYLASE PLEURAL; SOURCE, BODY FLUID CHOL PLEURAL; SOURCE, BODY FLUID GLUCOSE PLEURAL; SOURCE, BODY FLUID LDH PLEURAL; SOURCE, BODY FLUID TRIG PLEURAL; TRIGLYCERIDE, BODY FLUID 41 MG/DL (NOT ESTABLISHED)
[2020-03-01 13:47] LABS: SOURCE, BODY FLUID ALBUMIN PLEURAL
[2020-03-01 13:48] LABS: SOURCE, BODY FLUID TOT PROTEIN PLEURAL; TOTAL PROTEIN, BODY FLUID 3.9 G/DL (NOT ESTABLISHED)
[2020-03-01] MEDS ORDERED: MORPHINE 4 MG/ML 1ML VIAL/SYRINGE (J2270) IV ONE (14:15)
[2020-03-01] MEDS ORDERED: FUROSEMIDE 40MG/4ML VIAL (J1940) IV SCH (15:00)
[2020-03-01 16:00] VITALS: BP 138/76
[2020-03-01] MEDS ORDERED: FAT EMULSION IV 20% 500 ML IV SCH (18:00)
[2020-03-01] MEDS ORDERED: AMINO AC/ELECTROLYTE/DEX/CALC 2,000 ML IV SCH (18:00)
[2020-03-01] MEDS ORDERED: SODIUM CHLORIDE 0.9% INJ 10 ML SYR IV PRN (18:15)
[2020-03-01 20:00] VITALS: BP 150/71
[2020-03-01] MEDS: ENOXAPARIN 100MG/1ML SYRINGE (J1650 PER 10MG) SC SCH (20:11)
[2020-03-02] VITALS: BP 142/70
[2020-03-02] MEDS: PIPERACILLIN/TAZOBACTAM SOD 3.375 GM in D5W MINI-BAG PLUS 50 ML IV SCH ×4 (00:09→17:10)
[2020-03-02] MEDS: MORPHINE 4 MG/ML 1ML VIAL/SYRINGE (J2270) IV PRN ×2 (01:16→22:42)
[2020-03-02 04:00] VITALS: BP 128/66
[2020-03-02 06:01] LABS: BASO % 0.1 % (0.0-1.0); EOS # 0.2 10^3/uL (0.0-0.5); EOS % 2.5 % (0.0-3.0); HEMATOCRIT 37.7 % (42.0-52.0); HEMOGLOBIN 12.1 g/dl (13.5-17.5); LYMPH % 14.8 % (24.0-44.0); MEAN CORPUSCULAR HEMOGLOBIN 31.8 pg (27.0-33.0); MEAN CORPUSCULAR HGB CONC 32.1 g/dl (32.0-36.5); MONO # 0.6 10^3/uL (0.0-0.8); MONO % 8.6 % (0.0-5.0); NEUTROPHILS # 5.1 10^3/uL (1.5-8.5); NEUTROPHILS % 73.7 % (36.0-66.0); PLATELET COUNT, AUTOMATED 240 10^3/uL (150-450); RED BLOOD COUNT 3.81 10^6/uL (4.30-6.10); WHITE BLOOD COUNT 6.9 10^3/uL (4.0-10.0)
[2020-03-02 06:27] LABS: BLOOD UREA NITROGEN 18 MG/DL (7-18); CALCIUM LEVEL 7.9 MG/DL (8.8-10.2); CARBON DIOXIDE LEVEL 30 MEQ/L (21-32); CHLORIDE LEVEL 103 MEQ/L (98-107); CREATININE FOR GFR 0.96 MG/DL (0.70-1.30); GLOMERULAR FILTRATION RATE > 60.0 (>42); GLUCOSE, FASTING 168 MG/DL (70-100); POTASSIUM SERUM 3.2 MEQ/L (3.5-5.1); SODIUM LEVEL 136 MEQ/L (136-145)
[2020-03-02] MEDS: SODIUM CHLORIDE 0.9% INJ 10 ML SYR IV SCH ×2 (06:36→17:10)
[2020-03-02] MEDS: KCL 10MEQ/100ML SWI (KRUN) 10 MEQ in IV 1 EA IV SCH ×2 (07:46→08:57)
[2020-03-02] MEDS: ENOXAPARIN 100MG/1ML SYRINGE (J1650 PER 10MG) SC SCH ×2 (07:47→20:00)
[2020-03-02] MEDS: DOXYCYCLINE HYCLATE 100 MG in D5W MINI-BAG PLUS 100 ML IV SCH ×2 (07:47→21:06)
[2020-03-02] MEDS: LACTOBACILLUS ACIDOPHILUS CAP (BACID) PO SCH ×2 (07:47→17:10)
[2020-03-02 08:00] VITALS: BP 123/65
--- NOTE | 2020-03-02 10:00 | REP ---
INDICATION: TPN. COMPARISON: None. TECHNIQUE: The procedure was performed under the direct supervision of Dr. Elkins. The risks and benefits of the procedure were explained and informed consent was obtained by the healthcare proxy. The patient arise in the department with an existing indwelling midline catheter in the right brachial vein. The existing catheter and surrounding skin was prepped and draped in a sterile fashion. A 0.018 guidewire was inserted in the existing catheter. The catheter was removed and a 5.5 [place] dilator and peel-away sheath was inserted over the guidewire. The guidewire was advanced to the SVC using fluoroscopic guidance. A 5.5 [place] dual lumen catheter was cut to a length of 46 cm. The dilator was removed and the catheter was inserted over the guidewire with the tip ending in the SVC. The peel-away sheath was removed and the catheter was flushed with heparinized saline as per hospital protocol. The catheter was affixed to the skin and a sterile dressing was applied. The patient tolerated the procedure well and there were no immediate complications. 0.3 minutes of fluoroscopy time was utilized for this procedure. FINDINGS: None IMPRESSION: Existing midline catheter exchanged for a 5.5 [place] dual lumen catheter. The tip of the catheter is in the SVC. <Electronically signed by Raymundo Figueroa > 03/02/20 0955 <Electronically signed by Joseph Elkins > 03/02/20 0957
--- NOTE | 2020-03-02 11:37 | REP ---
INDICATION: RIGHT PLEURAL EFFUSION. COMPARISON: None. TECHNIQUE: The procedure was performed under the direct supervision of Dr. Elkins. The risks and benefits of the procedure were explained and informed consent was obtained by the healthcare proxy. The right pleural effusion was localized using ultrasound guidance. The skin was prepped and draped in a sterile fashion. 1% lidocaine was used as local anesthetic. Using ultrasound guidance an 8 [place] multi side hole catheter was inserted using trocar technique. 1700 cc of aravind colored fluid was withdrawn with a sample sent to the lab for analysis. The patient tolerated the procedure well and there were no immediate complications. FINDINGS: None IMPRESSION: Ultrasound-guided right thoracentesis yielding 1700 cc of aravind colored fluid. <Electronically signed by Raymundo Figueroa > 03/02/20 0963 <Electronically signed by Joseph Elkins > 03/02/20 1131
[2020-03-02 12:00] VITALS: BP 142/70
--- NOTE | 2020-03-02 15:16 | REP ---
INDICATION: Pleural effusion evaluation. COMPARISON: 03/01/2020. TECHNIQUE: SINGLE PORTABLE AP VIEW OF THE CHEST WAS PERFORMED. FINDINGS: The patient is semi upright. There is some haziness overlying the right lung which may represent pleural fluid layering posteriorly, increased since prior study. There is patchy atelectasis or infiltrate in the right lung base which has slightly worsened. The left lung is unchanged. The heart mediastinum are unchanged. A right arm PICC line is again noted. IMPRESSION: Mildly increased hazy density over the right hemithorax may represent mildly increased pleural fluid layering posteriorly. Mild patchy atelectasis or infiltrate right lung base has mildly increased. <Electronically signed by Joseph Elkins > 03/02/20 [id number]
[2020-03-02 15:56] VITALS: BP 140/62
[2020-03-02] MEDS ORDERED: AMINO AC/ELECTROLYTE/DEX/CALC 2,000 ML IV SCH (18:00)
[2020-03-02] MEDS ORDERED: FAT EMULSION IV 20% 500 ML IV SCH (18:00)
--- NOTE | 2020-03-02 19:43 | ECGEPIP ---
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
[2020-03-02 20:00] VITALS: BP 153/76
--- NOTE | 2020-03-02 23:14 | IPNPDOC ---
Subjective Date Seen The patient was seen on 03/02/20. 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 This morning, he was seen with son. Patient communicates by nodding head or squeezing hands. This morning, they were agreeable to PEG tube placement for tomorrow. This afternoon, they had second thoughts. They wanted more time to think about it and discuss with surgeon in the morning. 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 He has dysphagia and does not have a safe diet. Family and patient has opted for PEG tube which general surgery plans for tomorrow. Otherwise, patient will be on antibiotics for pneumonia. Pending fluid culture results Plan/VTE VTE Prophylaxis Ordered?: Yes Plan 1. Right parapneumonia effusion/HCAP -Pending fluid culture results -On IV zosyn and vancomycin 2. Chronic aspiration -No safe diet -Continue TPN -Planning for PEG tube placement by Dr. Rice tomorrow if family is still okay with proceeding forward with procedure. 3. Multisystem atrophy -Dependent for ADLS -24/7 care at home -May benefit from Palliative Care/Hospice consultation 4. Cholecystostomy tube -Placed in [facility] -No purulent drainage 5. DVT ppx -Lovenox Disposition: Pending family's decision on PEG tube and on palliative care/hospice. VS, I&O, 24H, Fishbone Vital Signs/I&O Vital Signs Date Time Temp Pulse Resp B/P (MAP) Pulse Ox O2 Delivery O2 Flow Rate FiO2 03/02/20 22:52 19 Room Air 03/02/20 20:00 97.7 62 153/76 (101) 95 I&O- Last 24 Hours up to 6 AM 03/02/20 06:00 Intake Total 830 ml Output Total 900 ml Balance -70 ml Laboratory Data 24H LABS Laboratory Tests 2 03/01/20 23:11: Bedside Glucose (Misc Panel) 151H 03/02/20 05:50: Immature Granulocyte % (Auto) 0.3, Neutrophils (%) (Auto) 73.7H, Lymphocytes (%) (Auto) 14.8L, Monocytes (%) (Auto) 8.6H, Eosinophils (%) (Auto) 2.5, Basophils (%) (Auto) 0.1, Neutrophils # (Auto) 5.1, Lymphocytes # (Auto) 1.0L, Monocytes # (Auto) 0.6, Eosinophils # (Auto) 0.2, Basophils # (Auto) 0.0, Nucleated Red Blood Cells % (auto) 0.0, Anion Gap 3L, Glomerular Filtration Rate > 60.0, Calcium Level 7.9L 03/02/20 11:56: Bedside Glucose (Misc Panel) 158H CBC/BMP Laboratory Tests 03/02/20 05:50 Microbiology Microbiology 02/28/20 Blood Culture - Preliminary, Resulted No Growth after 72 hours. All specime... 02/28/20 Blood Culture - Preliminary, Resulted No Growth after 72 hours. All specime... 02/28/20 Acid Fast Stain, Received Pending 02/28/20 Mycobacterial Culture, Received Pending 02/28/20 Fungal Smear, Received Pending 02/28/20 Fungal Culture, Received Pending 02/28/20 Gram Stain - Final, Resulted 02/28/20 Anaerobic Culture, Resulted Pending 02/28/20 Body Fluid Culture, Received Pending FRED BRAVO DO Mar 02, 2020 23:14
[2020-03-03] VITALS: BP 122/72
[2020-03-03] MEDS: PIPERACILLIN/TAZOBACTAM SOD 3.375 GM in D5W MINI-BAG PLUS 50 ML IV SCH ×2 (00:55→05:14)
[2020-03-03 04:00] VITALS: BP 152/80
[2020-03-03] MEDS: SODIUM CHLORIDE 0.9% INJ 10 ML SYR IV SCH (05:15)
[2020-03-03 05:49] LABS: BASO % 0.3 % (0.0-1.0); EOS # 0.2 10^3/uL (0.0-0.5); EOS % 2.8 % (0.0-3.0); HEMATOCRIT 37.9 % (42.0-52.0); HEMOGLOBIN 12.2 g/dl (13.5-17.5); LYMPH # 1.2 10^3/uL (1.5-5.0); LYMPH % 17.3 % (24.0-44.0); MEAN CORPUSCULAR HEMOGLOBIN 31.8 pg (27.0-33.0); MEAN CORPUSCULAR HGB CONC 32.2 g/dl (32.0-36.5); MEAN CORPUSCULAR VOLUME 98.7 fl (80.0-96.0); MONO # 0.6 10^3/uL (0.0-0.8); MONO % 8.6 % (0.0-5.0); NEUTROPHILS # 5.1 10^3/uL (1.5-8.5); NEUTROPHILS % 70.9 % (36.0-66.0); PLATELET COUNT, AUTOMATED 229 10^3/uL (150-450); RED BLOOD COUNT 3.84 10^6/uL (4.30-6.10); WHITE BLOOD COUNT 7.1 10^3/uL (4.0-10.0)
[2020-03-03 06:16] LABS: BLOOD UREA NITROGEN 19 MG/DL (7-18); CALCIUM LEVEL 7.9 MG/DL (8.8-10.2); CARBON DIOXIDE LEVEL 27 MEQ/L (21-32); CHLORIDE LEVEL 103 MEQ/L (98-107); CREATININE FOR GFR 0.84 MG/DL (0.70-1.30); GLOMERULAR FILTRATION RATE > 60.0 (>42); GLUCOSE, FASTING 137 MG/DL (70-100); POTASSIUM SERUM 3.8 MEQ/L (3.5-5.1); SODIUM LEVEL 138 MEQ/L (136-145)
--- NOTE | 2020-03-03 07:30 | ECHO ---
DATE OF PROCEDURE: 02/29/2020 Age: 75 Gender: Male Height: 72 inches Weight: 210 pounds Body surface area: 2.18 m2 PATIENT LOCATION: Inpatient PCU, Room 3229. REFERRING PHYSICIAN: Olga Joe MD INDICATION: Dyspnea. Pleural effusion. MEASUREMENTS: 2D Measurements: RV 4.2 cm LV 4.4 cm Septum 1.0 cm Posterior wall 1.0 cm Aortic Root 3.3 cm LA 3.5 cm LVEF 75% Doppler Measurements: AV 1.8 m/s LVOT 1.1 m/s LVOT diameter 2.2 cm MV-E 58, A 84, E/A ratio 0.7 Early mitral deceleration time 240 msec E prime medial 6.3, A prime medial 15, E prime lateral 8.4 Average E/E prime ratio 7.3/PCWP 11.7 mmHg PV 1.0 m/s Pulmonary artery acceleration time 103 msec RVSP 51 mmHg IVC 2.0 cm COMMENTS: Normal sinus rhythm without intraventricular conduction disturbance. M-mode and two-dimensional echocardiography was performed with pulse, continuous wave, color flow, and tissue Doppler studies. Normal left ventricular size, wall thickness, and hyperkinetic wall motion. Normal left atrial size with grade 1 LV diastolic dysfunction, but currently normal estimated mean left atrial pressure. At least mildly dilated right ventricle with normal wall motion and Doppler evidence of at least moderate pulmonary hypertension. Mildly dilated right atrium and IVC size upper limits of normal with slightly reduced respiratory collapse suggesting an elevated central venous pressure. Normal aortic dimensions. Mild-moderate degenerative changes of his aortic valve, but adequate cusp separation and only trace insufficiency. Normal appearing mitral valve apparatus and leaflet excursion, and no functional valvular abnormality. Normal appearing tricuspid valve with some moderate insufficiency. No apparent intracardiac mass or pericardial effusion. MTDD
[2020-03-03 08:00] VITALS: BP 137/73
[2020-03-03] MEDS: LACTOBACILLUS ACIDOPHILUS CAP (BACID) PO SCH (08:00)
[2020-03-03] MEDS: ENOXAPARIN 100MG/1ML SYRINGE (J1650 PER 10MG) SC SCH (08:13)
[2020-03-03] MEDS: DOXYCYCLINE HYCLATE 100 MG in D5W MINI-BAG PLUS 100 ML IV SCH (08:13)
[2020-03-03] MEDS: MORPHINE 4 MG/ML 1ML VIAL/SYRINGE (J2270) IV PRN (09:42)
[2020-03-03] MEDS ORDERED: SCOPOLAMINE 1MG TRANSDERMAL PATCH TOP PRN (10:00)
[2020-03-03] MEDS ORDERED: MORPHINE 10MG/0.5ML ORAL CONCENTRATE SOLUTION U/D SL PRN (10:00)
[2020-03-03] MEDS ORDERED: ONDANSETRON 4 MG ORAL DISINTEGRATING TAB PO PRN (10:00)
[2020-03-03] MEDS ORDERED: MORP20SO3 PO (10:45)
[2020-03-03] MEDS ORDERED: SCOP1PAT2 TOP (10:45)
[2020-03-03] MEDS ORDERED: ONDA4TAB6 PO (10:45)
[2020-03-03] MEDS ORDERED: HYOS125TA PO (15:48)
--- NOTE | 2020-03-03 23:41 | DS.PDOC ---
Discharge Summary General Date of Admission Feb 28, 2020 at 16:31 Date of Discharge Mar 03, 2020 Specialist/Consultants Involve General surgery, Dr. Rice Discharge Summary PROCEDURES PERFORMED DURING STAY: Thoracentesis ADMITTING DIAGNOSES: 1. Right sided parapneumonic effusion 2. Dysphagia 3. Cholecystis s/p cholecystostomy tube 4. Functional Quadriplegic 5. Multisystem Atrophy DISCHARGE DIAGNOSES: 1. Right sided parapneumonic effusion 2. Dysphagia 3. Cholecystis s/p cholecystostomy tube 4. Functional Quadriplegic 5. Multisystem Atrophy COMPLICATIONS/CHIEF COMPLAINT: Parapneumonic Effusion. HISTORY OF PRESENT ILLNESS: Mr. Montgomery is a 75 year old male with multisystem atrophy who is here for dyspnea and cough. He was recently discharged from [facility] s/p cholecystostomy tube placement for acute cholecystitis. He also had complications of dysphagia with aspiration. [facility] had offered PEG tube placement, but at that time, the family wanted more time to think about it. He was sent home with a midline and IV fluids. Patient has 24/ care with the family. He was brought to the ED for dyspnea and cough. Patient has a very soft voice and was communicating by hands and head motions. In the ED, he was found to have a right parapneumonic effusion. Patient was admitted for deconditioning, dysphagia with aspiration, and right parapneumonic effusion. HOSPITAL COURSE: During hospitalization, patient was put on Vancomycin and Zosyn for hospital acquired pneumonia. He had his fluid drained which was suggestive of exudative effusion by light's criteria for both LDH and total protein. Fluid culture and anaerobic culture was negative. Cytology was negative for malignancy. Echocardiogram was hyperdynamic with EF 75% and grade I diastolic dysfunction. Otherwise, General surgery was consulted for possible PEG tube placement. PEG tube placement was tentatively planned for Mar 03, 2020. Patient was seen today with son at bed side. For today and yesterday, they have been unsure about proceeding with the PEG. I described the risk and benefits of having the PEG tube. PEG tube would prolong the patient's life as it gives him another way to receive nutrition. The risks involved is infection as it is a foreign object into the body. Also, the patient would have to be mindful not to dislodge the tube as it displacement can cause pain or leakage of stomach acid. Family would have to be mindful that they weren't feeding him too quickly as he may aspirate on tube feedings. I described it to the patient and he decided against PEG tube placement. Son and nurse was present at this time. Patient wanted hospice and [facility]. The son called the patient HCP and we had her on the speaker phone with us. I re-described the risks and benefits of the PEG tube and the patient's decision. HCP was agreeable to this. I also informed the HCP about the patient's decision on hospice and [facility]. HCP was also agreeable to this. With nurse and son present as witnesses, patient was made [facility]. [facility] has arranged for Hospice to activate this Sunday. Patient was discharged home to spend time with his family. DISCHARGE MEDICATIONS: Please see below. ALLERGIES: Please see below. PHYSICAL EXAMINATION ON DISCHARGE: VITAL SIGNS: Please see below. GENERAL: Comfortable, but thin HEENT: Head normocephalic, atraumatic, sclera clear CARDIOVASCULAR EXAMINATION: Regular rate and rhythm RESPIRATORY EXAMINATION: Diminished ABDOMINAL EXAMINATION: Soft, non-tender EXTREMITIES: No pitting edema NEUROLOGICAL EXAMINATION: Was able to follow commands, but weak. Can nod head yes and no and squeeze hands PSYCHIATRIC EXAMINATION: Normal mood and affect LABORATORY DATA: Please see below. IMAGING: (radiologist impression) CT chest without contrast (02/29/2020) 1. Large right pleural effusion with underlying elements of right lower lobe, right middle lobe and right upper lobe collapse along with streaky left basilar atelectasis. 2. There is a large subcapsular hepatic collection along the periphery of the liver margin with an associated percutaneous pigtail catheter extending through the collection to the gallbladder fossa. The density of the subcapsular fluid is mixed low-density suggesting either complex proteinaceous material and or partially hemorrhagic fluid. PROGNOSIS: Guarded ACTIVITY: As tolerated. DIET: Now that his is hospice, as tolerated and desired DISCHARGE PLAN: Home with home services DISPOSITION: 50 Hospice Home. DISCHARGE INSTRUCTIONS: 1. Follow up with hospice on Sunday 2. Follow up with PCP as needed DISCHARGE CONDITION: Stable. Total time spent on discharge planning, discharge summary, and medication reconciliation: 70 minutes Vital Signs/I&Os Vital Signs Date Time Temp Pulse Resp B/P (MAP) Pulse Ox O2 Delivery O2 Flow Rate FiO2 03/03/20 09:52 18 03/03/20 08:00 97.6 64 137/73 (94) 93 Room Air I&O- Last 24 Hours up to 6 AM 03/03/20 06:00 Intake Total 1375 ml Output Total 0 ml Balance 1375 ml Laboratory Data Labs 24H Laboratory Tests 2 03/03/20 05:32: Immature Granulocyte % (Auto) 0.1, Neutrophils (%) (Auto) 70.9H, Lymphocytes (%) (Auto) 17.3L, Monocytes (%) (Auto) 8.6H, Eosinophils (%) (Auto) 2.8, Basophils (%) (Auto) 0.3, Neutrophils # (Auto) 5.1, Lymphocytes # (Auto) 1.2L, Monocytes # (Auto) 0.6, Eosinophils # (Auto) 0.2, Basophils # (Auto) 0.0, Nucleated Red Blood Cells % (auto) 0.0, Anion Gap 8, Glomerular Filtration Rate > 60.0, Calcium Level 7.9L 03/03/20 07:34: Bedside Glucose (Misc Panel) 143H CBC/BMP Laboratory Tests 03/03/20 05:32 FSBS Laboratory Tests Test 03/03/20 07:34 Range/Units Bedside Glucose (Misc Panel) 143 83-110 MG/DL Microbiology Microbiology 02/28/20 Blood Culture - Preliminary, Resulted No Growth after 72 hours. All specime... 02/28/20 Blood Culture - Preliminary, Resulted No Growth after 72 hours. All specime... 02/28/20 Acid Fast Stain, Received Pending 02/28/20 Mycobacterial Culture, Received Pending 02/28/20 Fungal Smear, Received Pending 02/28/20 Fungal Culture, Received Pending 02/28/20 Gram Stain - Final, Complete 02/28/20 Anaerobic Culture - Final, Complete 02/28/20 Body Fluid Culture - Final, Complete Discharge Medications Scheduled PRN Hyoscyamine Sulfate (Hyoscyamine Sulfate) 0.125 Mg Tab.subl, 0.125 MG PO Q4HP PRN for TERMINAL SECRETIONS Use sublingually if unable to swallow Morphine Sulfate (Morphine Sulfate) 100 Mg/5 Ml Solution, 0.25-1 ML PO Q2H PRN for PAIN OR DYSPNEA Use sublingually if unable to swallow Allergies Coded Allergies: No Known Allergies (Verified Allergy, Unknown, 02/05/20) FRED BRAVO DO Mar 03, 2020 23:41
== END 2020-03-03 12:00 | disposition hospice, home (50) | DRG 193 ==
LOC: EDBD 14:02 → M ED 14:02 → M ED INP 16:31 → M PCU 22:10
PROVIDERS: ADMIT General Practice; ATTEND Internal Medicine
PROC: 0W993ZZ Drainage of Right Pleural Cavity, Percutaneous Approach (ICD-10-PCS; 2020-03-01)
PROC: 02HV33Z Insertion of Infusion Device into Superior Vena Cava, Percutaneous Approach (ICD-10-PCS; principal; 2020-03-01 11:30)
DX: J18.9 Pneumonia, unspecified organism (principal); R53.2 Functional quadriplegia; J90 Pleural effusion, not elsewhere classified; R09.01 Asphyxia; R13.10 Dysphagia, unspecified; M62.59 Muscle wasting and atrophy, not elsewhere classified, multiple sites; Z20.822 Contact with and (suspected) exposure to COVID-19; Z79.01 Long term (current) use of anticoagulants; Z79.899 Other long term (current) drug therapy; Z66 Do not resuscitate; Y95 Nosocomial condition

== ENCOUNTER → 2020-03-16 | Outpatient (REF) | payer MEDICARE, MEDICAID ==
[~2020-03-16] MED LIST changes: +BACL5TAB2 PO; +BENZ200C70 PO; +GABA-1171 PO; +HYOS125TA PO; +MORP20SO3 PO; +ONDA4TAB6 PO; +PT COMMENT; +SCOP1PAT2 TOP
[2020-03-17 13:34] LABS: APPEARANCE, URINE HAZY (CLEAR); BACTERIA, URINE AUTO 1+ (NEGATIVE); BILIRUBIN, URINE AUTO NEGATIVE (NEGATIVE); BLOOD, URINE BLOOD 2+ (NEGATIVE); CALCIUM OXALATE CRYSTALS SMALL; COLOR, URINE YELLOW (YELLOW); GLUCOSE, URINE (UA) AUTO NEGATIVE (NEGATIVE); KETONE, URINE AUTO NEGATIVE (NEGATIVE); LEUKOCYTE ESTERASE, URINE AUTO 2+ (NEGATIVE); MUCUS, URINE SMALL (NEGATIVE); NITRITE, URINE AUTO NEGATIVE (NEGATIVE); PROTEIN, URINE AUTO NEGATIVE (NEGATIVE); RBC, URINE AUTO 43 /HPF (0-3); SPECIFIC GRAVITY URINE AUTO 1.018 (1.002-1.035); SQUAMOUS EPITHELIAL CELL UR AU 0 /HPF (0-6); UROBILINOGEN, URINE AUTO 0.2 mg/dL (0.0-2.0); WBC, URINE AUTO 62 /HPF (0-3)
== END ==
LOC: M LAB REF 12:09
PROVIDERS: ATTEND Family Medicine Addiction Medicine
DX: R30.9 Painful micturition, unspecified (principal)

== ENCOUNTER 2020-04-09 18:13 | Outpatient (CLI) | payer MEDICARE, OTHER ==
[~2020-04-09] VITALS: Ht 188 cm; Wt 100.0 kg
[2020-04-09 18:37] VITALS: BP 114/58
[2020-04-09] MEDS ORDERED: NS 1,000 ML IV SCH (18:49)
[2020-04-09] MEDS ORDERED: ALBUTEROL 90 MCG/ACT 8GM HFA INHALER INH PRN (19:00)
[2020-04-09] MEDS ORDERED: diphenhydrAMINE 50MG/ML VIAL (J1200) IV PRN (19:00)
[2020-04-09] MEDS ORDERED: methylPREDNISolone 125MG 2ML VIAL IV PRN (19:00)
[2020-04-09] MEDS ORDERED: EPINEPHrine INJ 1 MG/ML 1ML AMP IM PRN (19:00)
[2020-04-09 20:03] VITALS: BP 123/59
[2020-04-09 20:32] VITALS: BP_SYST 122; BP_DIAS 58; BP_DIAS 88
[2020-04-09 20:51] VITALS: BP 125/59
[2020-04-09] MEDS ORDERED: BAMLANIVIMAB 700 MG in NS 250 ML IV ONE (21:00)
[2020-04-09 21:35] VITALS: BP 136/61
[2020-04-09 22:35] VITALS: BP 126/60
[2020-04-10] MEDS ORDERED: UNRESOLVED CLARIFICATION ENTRY XX SCH (00:01)
== END 2020-04-09 22:42 | disposition home or self-care (01) ==
LOC: M OPCLI4PR 18:13 → M 4MAIN 18:27 → M OPCLI4PR 22:42
PROVIDERS: ATTEND Family Medicine Addiction Medicine
DX: U07.1 COVID-19 (principal)

== ENCOUNTER → 2020-04-15 | Outpatient (REF) | payer MEDICARE, OTHER ==
[2020-04-15 18:45] LABS: AMORPHOUS SEDIMENT SMALL (NEGATIVE); APPEARANCE, URINE TURBID (CLEAR); BACTERIA, URINE AUTO NEGATIVE (NEGATIVE); BILIRUBIN, URINE AUTO NEGATIVE (NEGATIVE); BLOOD, URINE BLOOD NEGATIVE (NEGATIVE); CALCIUM OXALATE CRYSTALS SMALL; COLOR, URINE YELLOW (YELLOW); GLUCOSE, URINE (UA) AUTO NEGATIVE (NEGATIVE); KETONE, URINE AUTO NEGATIVE (NEGATIVE); LEUKOCYTE ESTERASE, URINE AUTO 2+ (NEGATIVE); MUCUS, URINE LARGE (NEGATIVE); NITRITE, URINE AUTO NEGATIVE (NEGATIVE); PROTEIN, URINE AUTO NEGATIVE (NEGATIVE); RBC, URINE AUTO 6 /HPF (0-3); SQUAMOUS EPITHELIAL CELL UR AU 1 /HPF (0-6); UROBILINOGEN, URINE AUTO 0.2 mg/dL (0.0-2.0); WBC, URINE AUTO 23 /HPF (0-3)
== END ==
LOC: M LAB REF 17:08
PROVIDERS: ATTEND Family Medicine Addiction Medicine
DX: R32 Unspecified urinary incontinence (principal)

== ENCOUNTER → 2020-05-03 | Outpatient (REF) | payer MEDICARE, OTHER ==
[2020-05-03 19:04] LABS: APPEARANCE, URINE CLEAR (CLEAR); BACTERIA, URINE AUTO NEGATIVE (NEGATIVE); BILIRUBIN, URINE AUTO NEGATIVE (NEGATIVE); BLOOD, URINE BLOOD NEGATIVE (NEGATIVE); CALCIUM OXALATE CRYSTALS SMALL; COLOR, URINE YELLOW (YELLOW); GLUCOSE, URINE (UA) AUTO NEGATIVE (NEGATIVE); KETONE, URINE AUTO NEGATIVE (NEGATIVE); LEUKOCYTE ESTERASE, URINE AUTO 3+ (NEGATIVE); MUCUS, URINE SMALL (NEGATIVE); NITRITE, URINE AUTO NEGATIVE (NEGATIVE); PROTEIN, URINE AUTO NEGATIVE (NEGATIVE); RBC, URINE AUTO 2 /HPF (0-3); SPECIFIC GRAVITY URINE AUTO 1.025 (1.002-1.035); SQUAMOUS EPITHELIAL CELL UR AU 0 /HPF (0-6); UROBILINOGEN, URINE AUTO 0.2 mg/dL (0.0-2.0); WBC, URINE AUTO 34 /HPF (0-3)
== END ==
LOC: M LAB REF 18:07
PROVIDERS: ATTEND Family Medicine Addiction Medicine
DX: N30.00 Acute cystitis without hematuria (principal)

== ENCOUNTER → 2020-05-20 | Outpatient (CLI) | payer MEDICARE, OTHER ==
[2020-05-20 18:17] LABS: BASO % 0.5 % (0.0-1.0); EOS # 0.3 10^3/uL (0.0-0.5); EOS % 4.9 % (0.0-3.0); HEMATOCRIT 49.2 % (42.0-52.0); LYMPH # 1.7 10^3/uL (1.5-5.0); LYMPH % 30.1 % (24.0-44.0); MEAN CORPUSCULAR HEMOGLOBIN 31.9 pg (27.0-33.0); MEAN CORPUSCULAR HGB CONC 32.5 g/dl (32.0-36.5); MONO # 0.4 10^3/uL (0.0-0.8); MONO % 7.1 % (2.0-8.0); NEUTROPHILS # 3.2 10^3/uL (1.5-8.5); NEUTROPHILS % 57.2 % (36.0-66.0); PLATELET COUNT, AUTOMATED 211 10^3/uL (150-450); RED BLOOD COUNT 5.02 10^6/uL (4.30-6.10); WHITE BLOOD COUNT 5.5 10^3/uL (4.0-10.0)
[2020-05-20 18:28] LABS: ALBUMIN 3.5 GM/DL (3.2-5.2); ALT/SGPT 23 U/L (12-78); BILIRUBIN,TOTAL 0.3 MG/DL (0.2-1.0); BLOOD UREA NITROGEN 22 MG/DL (7-18); CALCIUM LEVEL 9.1 MG/DL (8.8-10.2); CARBON DIOXIDE LEVEL 26 MEQ/L (21-32); CHLORIDE LEVEL 108 MEQ/L (98-107); CREATININE FOR GFR 1.05 MG/DL (0.70-1.30); GLOMERULAR FILTRATION RATE > 60.0 (>42); GLUCOSE, FASTING 107 MG/DL (70-100); POTASSIUM SERUM 4.3 MEQ/L (3.5-5.1); SODIUM LEVEL 140 MEQ/L (136-145); TOTAL PROTEIN 7.4 GM/DL (6.4-8.2)
== END ==
LOC: M LAB 16:47
PROVIDERS: ATTEND Surgery
DX: K80.10 Calculus of gallbladder with chronic cholecystitis without obstruction (principal)

== ENCOUNTER → 2020-05-28 | Outpatient (REF) | payer MEDICARE, MEDICAID ==
[2020-05-28 18:17] LABS: APPEARANCE, URINE HAZY (CLEAR); BACTERIA, URINE AUTO NEGATIVE (NEGATIVE); BILIRUBIN, URINE AUTO NEGATIVE (NEGATIVE); BLOOD, URINE BLOOD NEGATIVE (NEGATIVE); CALCIUM OXALATE CRYSTALS SMALL; COLOR, URINE YELLOW (YELLOW); GLUCOSE, URINE (UA) AUTO NEGATIVE (NEGATIVE); KETONE, URINE AUTO NEGATIVE (NEGATIVE); LEUKOCYTE ESTERASE, URINE AUTO NEGATIVE (NEGATIVE); MUCUS, URINE SMALL (NEGATIVE); NITRITE, URINE AUTO NEGATIVE (NEGATIVE); PROTEIN, URINE AUTO NEGATIVE (NEGATIVE); RBC, URINE AUTO 1 /HPF (0-3); SPECIFIC GRAVITY URINE AUTO 1.024 (1.002-1.035); SQUAMOUS EPITHELIAL CELL UR AU 0 /HPF (0-6); WBC, URINE AUTO 2 /HPF (0-3)
== END ==
LOC: M LAB REF 17:27
PROVIDERS: ATTEND Family Medicine Addiction Medicine
DX: N30.00 Acute cystitis without hematuria (principal)

== ENCOUNTER → 2020-06-03 | Outpatient (CLI) | payer MEDICARE, MEDICAID ==
--- NOTE | 2020-06-03 09:59 | REP ---
INDICATION: OTHER CHOLELITHIASIS WITHOUT OBSTRUCTION. COMPARISON: 02/13/2020. TECHNIQUE: Real-time sonographic evaluation of right upper quadrant performed. FINDINGS: The gallbladder is questionably visualized, likely contracted and filled with stones. Evaluation is limited due to bowel gas and body habitus. Thickness of the wall is not obtainable. Common bile duct is visualized and is at the upper limits of normal at 7 mm. Liver demonstrates diffuse heterogeneous increased echotexture compatible with diffuse fibrofatty infiltration. No focal mass is seen. The liver appears slightly prominent in size with a length of 17.6 cm. Pancreas could not be visualized due to overlying bowel gas. The right kidney demonstrates no hydronephrosis, with a normal size of 11.6 cm in length. No free fluid is seen. IMPRESSION: Limited study due to bowel gas and body habitus. The gallbladder appears to be contracted and filled with stones. No free fluid. Common bile duct upper limits of normal at 7 mm. Diffuse fibrofatty infiltration of the liver. <Electronically signed by Joseph Elkins > 06/03/20 [id number]
== END ==
LOC: M RAD 08:55
PROVIDERS: ATTEND Surgery
DX: K80.80 Other cholelithiasis without obstruction (principal); K76.0 Fatty (change of) liver, not elsewhere classified

== ENCOUNTER → 2020-06-03 | Outpatient (CLI) | payer MEDICARE, MEDICAID | LOC: M RAD 08:49 | PROVIDERS: ATTEND Surgery | DX: K80.80 Other cholelithiasis without obstruction (principal) ==

== ENCOUNTER → 2021-01-24 | Outpatient (REF) | payer MEDICARE, MEDICAID ==
[~2021-01-24] MED LIST changes: +MORP1SOL5 PO; -MORP20SO3 PO; -SCOP1PAT2 TOP; +TRAN1DIS4 TOP
== END ==
LOC: M LAB REF 14:41
PROVIDERS: ATTEND Physician Assistant
DX: R21 Rash and other nonspecific skin eruption (principal)

== ENCOUNTER 2021-02-04 10:39 | Emergency (ER) | payer MEDICARE, MEDICAID ==
[~2021-02-04] VITALS: Ht 188 cm; Wt 113.6 kg
[2021-02-04] MEDS ORDERED: BUPR300T92 (12:43)
[2021-02-04] MEDS ORDERED: LEVOTAB10 (12:43)
[2021-02-04] MEDS ORDERED: GABA-1171 (12:43)
[2021-02-04] MEDS ORDERED: BACL10TA2 (12:43)
[2021-02-04] MEDS ORDERED: TRIA1CR80 (12:43)
[2021-02-04] MEDS ORDERED: ISOVUE-370 76% 100ML VIAL As Ordered ONE (13:59)
[2021-02-04 14:27] LABS: INR 1.05; PARTIAL THROMBOPLASTIN TIME 31.2 SECONDS (25.9-37.0); PROTHROMBIN TIME 14.1 SECONDS (12.7-14.5)
[2021-02-04 14:38] LABS: DRVV SCREEN 38.7 SEC
[2021-02-04] MEDS ORDERED: ELIQ5TAB PO (14:58)
[2021-02-04] MEDS ORDERED: APIXABAN 5 MG TAB (ELIQUIS) PO ONE (15:00)
[2021-02-04 15:19] VITALS: BP 179/88
[2021-02-10 11:09] LABS: ANTI THROMBIN 3 ANTIGEN IMMUNO 86 % (72-124); ANTI THROMBIN 3 FUNCT ACTIVITY 82 % (75-135); CARDIOLIPIN IGA ANTIBODY <9 APL U/mL (0-11); CARDIOLIPIN IGG ANTIBODY 17 GPL U/mL (0-14); CARDIOLIPIN IGM ANTIBODY 11 MPL U/mL (0-12); PHOSPHOLIPIDS LEVEL 207 mg/dL (150-250); PROTEIN C FUNCTIONAL ACTIVITY 128 % (73-180); PROTEIN S FUNCTIONAL ACTIVITY 74 % (63-140)
== END 2021-02-04 15:56 | disposition home or self-care (01) ==
LOC: M ED 10:39
DX: I82.412 Acute embolism and thrombosis of left femoral vein (principal); I82.432 Acute embolism and thrombosis of left popliteal vein; Z86.718 Personal history of other venous thrombosis and embolism
CPT/HCPCS: 71046; 71275; 80047; 81240; 81241; 83880; 84311; 84484; 85300; 85301; 85303; 85305; 85610; 85730; 86147; 87798; 93971; 99283; Q9967